=== PATIENT | female | born 1985 | race Caucasian/White ===

== ENCOUNTER 2024-01-25 13:03 | Outpatient (AMB) | payer OTHER, SELFPAY ==
--- NOTE | 2024-01-25 13:20 | MHC.PC.OV ---
Vital Signs 01/25/24 13:22 Height 6 ft Weight 198 lb 4 oz BMI 26.9 BP 120/82 Blood Pressure Location Lt brachial Position Sitting Pulse 93 Pulse Source Pulse Oximeter Pulse Oximetry (%) 98 Oxygen Delivery Method Room Air Intake Visit Reasons: Establish care- needs referral to pain management Intake Note: Patient is a new patient here to establish care for Migraine, Gilbert Disease, ADHD. Transferring care from Dr Garza. Medical records have not been requested and have not received. Assistant Manager Required: No Mobile Home Technician: Not Required per policy Accompanied by: Self / Same As Patient Allergies paroxetine [From Paxil] Allergy (Severe, Verified 01/25/24 13:46) bleeding internally kiwi Allergy (Intermediate, Verified 01/25/24 13:46) burn latex Allergy (Intermediate, Verified 01/25/24 13:46) Burn prochlorperazine [From Compazine] Allergy (Intermediate, Verified 01/25/24 13:46) Muscle Pain strawberry Allergy (Intermediate, Verified 01/25/24 13:46) burn B12 Adverse Reaction (Severe, Uncoded 01/25/24 13:58) jaundice Medication List - Last Reconciled 01/25/24 by Patricia Singer PA-C dextroamphetamine-amphetamine 20 mg (Adderall) 20 mg PO DAILY dextroamphetamine-amphetamine 30 mg ER (Adderall XR) 30 mg PO DAILY diclofenac sodium 50 mg PO TID PRN methocarbamol 500 mg PO TID PRN ondansetron HCl 4 mg PO Q6H oxycodone 10 mg PO Q6H PRN sumatriptan succinate 100 mg PO DAILY PRN tizanidine 8 mg PO BEDTIME PRN Tobacco use date assessed: 01/25/24 Dental Screening Dental Screen Date: 01/25/24 Did you have a dental visit in the last 12 months?: Yes Did you have a dental problem in the last 6 months where you did not have access to dental care?: No Was dental information given to patient?: Patient has dentist HPI Establish care- needs referral to pain management HPI Details 38-year-old female coming to the office for the 1st time. Patient states she is moving back from [place] and has a history of chronic migraines that she was following with pain management. She was seen in the [facility] for prescription for stimulant medication. She describes her migraines as severe and similar to a cluster headache and we will often result in nausea and vomiting. Denies any auras with these migraines. She has been evaluated by Neurology in the past and was told that she does have swelling in her brain primarily over night and they can not identify any underlying causes. She is not up-to-date on routine Pap smears. [facility], [facility] Surgical History (Updated 01/25/24 @ 13:41 by BRO Andrade) History of dental surgery Social History (Updated 01/25/24 @ 13:41 by BRO Andrade) Housing: House Alcohol intake: current Alcohol intake frequency: holidays/special occasions only Patient Tobacco Use Status: Never used Tobacco e-Cigarette/Vaping Use: Former Use Second Hand Smoke Exposure: No service: No Current occupational status: unemployed Cognitive needs: No Hearing needs: No Vision needs: No Questionnaire PHQ-9 Over the last 2 weeks, how often have you been bothered by any of the following problems? 1. Little interest or pleasure in doing things: several days 2. Feeling down, depressed, or hopeless: not at all 3. Trouble falling or staying asleep, or sleeping too much: not at all 4. Feeling tired or having little energy: not at all 5. Poor appetite or overeating: not at all 6. Feeling bad about yourself - or that you are a failure or have let yourself or your family down: not at all 7. Trouble concentrating on things, such as reading the newspaper or watching television: not at all 8. Moving or speaking so slowly that other people could have noticed. Or the opposite - being so fidgety or restless that you have been moving around a lot more than usual: not at all 9. Thoughts that you would be better off or of hurting yourself in some way: not at all Total score: 1 Depression Screening Interpretation: Positive Depression Screening Follow-up: Existing condition Depression Screening Done: Yes Source: Developed by Drs. Frandy Portillo, Rachel Sr, Mike Vu and colleagues, with an educational chris from [employer]. Thrive Questionnaire Date Thrive assessed: 01/25/24 I am a: Patient What is your living situation today?: I have a steady place to live Within the past 12 months, did the food you bought not last and you didn't have the money to get more?: Sometimes True Within the past 12 months, did you worry whether your food would run out before you got money to buy more?: Sometimes True Do you have trouble paying for medicines?: Yes Do you have trouble getting transportation to medical appointments?: No Do you have trouble paying your heating and electricity bill?: I choose not to answer this question Do you have trouble taking care of your child, family member or friend?: I choose not to answer this question Do you have trouble with day-to-day activities such as bathing, preparing meals, shopping, managing finances, etc.?: I choose not to answer this question Are you currently unemployed and looking for a job?: Yes Are you interested in more education?: No Please select the resources that you would like help with: Paying for medicine Currently or been in a relationship where the following occur: I choose not to answer THRIVE Score: 2 AUDIT C Alcohol Use Questionnaire (AUDIT-C) 1. How often do you have a drink containing alcohol?: Monthly or less 2. How many drinks containing alcohol do you have on a typical day when you are drinking?: 1 or 2 3. How often do you have six or more drinks on one occasion?: Never Total Score: 1 ALLISON-7 AMB Questionnaire ALLISON-7 Date ALLISON - 7 assessed: 01/25/24 Feeling nervous, anxious, or on edge: 1 = Several days Not being able to stop or control worryin = Several days Worrying too much about different things: 1 = Several days Trouble relaxin = Several days Being so restless that it is hard to sit still: 1 = Several days Becoming easily annoyed or irritable: 1 = Several days Feeling afraid as if something awful might happen: 1 = Several days Total ALLISON-7 score (0-4 normal; 5-9 mild; 10-14 moderate; 15-21 severe): 7 Source: Developed by Drs. Frandy Portillo, Rachel Sr, Mike Vu and colleagues, with an educational chris from [employer] ALLISON-7 Assessment Billing ALLISON-7 Assessment Tool: ALLISON-7 Assessment 87634 Review of Systems Const Denies body aches, Denies fatigue, Denies fever(s), Denies frequent falls, Reports headache(s) and Denies weakness Eyes Reports no additional complaints and Denies change in vision ENT Denies dysphagia, Denies dizziness, Denies facial pain, Reports headache(s), Denies nasal congestion and Denies odynophagia Card Denies chest pain, Denies syncope, Denies irregular heart rhythm, Denies leg edema, Denies lightheadedness and Denies dyspnea Resp Denies cough and Denies dyspnea GI Denies abdominal pain, Denies constipation, Denies dysphagia, Denies dyspepsia, Denies diarrhea, Denies nausea, Denies odynophagia and Denies vomiting Denies urinary frequency, Denies dysuria, Denies urinary hesitancy and Denies urinary urgency Musc Denies back pain and Denies myalgias Skin/Breast Reports system reviewed and no additional complaints, except as documented Neuro Denies dizziness, Denies syncope, Denies frequent falls, Reports headache(s) and Denies weakness Psych Reports no additional complaints Endo Denies fatigue Physical exam (Primary Care) Vital Signs: Last Vital Signs Pulse 93 01/25/24 13:22 BP 120/82 01/25/24 13:22 Pulse Ox 98 01/25/24 13:22 Oxygen Delivery Method Room Air 01/25/24 13:22 BMI result Body Mass Index 26.9 Tobacco/Smoking Status: Tobacco use Status Tobacco use date assessed 01/25/24 01/25/24 13:27 Patient Tobacco Use Status Never used Tobacco 01/25/24 13:41 e-Cigarette/Vaping Use Former Use 01/25/24 13:43 PHQ-9: PHQ-9 Score PHQ-9: Total score 1 01/25/24 13:28 Depression Screening Interpretation: Positive Depression Screening Follow-up: Existing condition Thrive Assessment: Date of Thrive Assessment Date Thrive assessed 01/25/24 01/25/24 13:27 Currently or been in a relationship where the following occur: I choose not to answer Const General: cooperative, healthy appearing, comfortable and no acute distress Orientation/consciousness: patient oriented x3 HENMT Head: Yes normocephalic Ears: hearing grossly normal bilaterally General nose exam: Normal external nose present Eyes General: appearance normal, both eyes and all related structures Conjunctivae: conjunctivae normal Neck Neck: Yes full ROM and Yes no lymphadenopathy Resp Effort & Inspection: normal respiratory effort Auscultation: clear to auscultation bilaterally, no crackles, no rales, no rhonchi and no wheezes Cardio Rate: regular rate Rhythm: regular rhythm Skin General skin exam: no rashes or lesions noted Neuro General: patient oriented x3 Gait exam (Neuro): Normal gait present Extrem General: Yes normal to inspection, Yes full ROM and No edema Psych Affect: normal affect Attitude: cooperative Insight: Good insight present (Psych) Judgement: Good judgement present (Psych) Coding Level of Care Code New Pt Level 4 (19670) Diagnoses Gilbert syndrome E80.4 ADHD F90.9 Migraine G43.909 Depression F32.A Cervical cancer screening Z12.4 Additional Codes ALLISON-7 Assessment Billing - ALLISON-7 Assessment Tool: ALLISON-7 Assessment 35743 ([id number]) Assessment & Plan Assessment & Plan (1) Gilbert syndrome: Code(s): E80.4 - Gilbert syndrome Category: Medical Plan: Patient states due to this condition she has issues with medication metabolism and is aware of medications to avoid. Avoid medications that are process slowly through the liver. (2) ADHD: Code(s): F90.9 - Attention-deficit hyperactivity disorder, unspecified type Category: Medical Plan: Patient previously on stimulant medication referral placed to outpatient psych clinic. We will request the results and records from her ADHD Clinic to continue this therapy. (3) Migraine: Code(s): G43.909 - Migraine, unspecified, not intractable, without status migrainosus Category: Medical Plan: Referral placed to pain management continue on current medication regimen. Has been seen by neurologist in the past and is declining referral at this time. (4) Depression: Code(s): F32.A - Depression, unspecified Category: Medical Plan: Patient requesting referral to counseling and we will find a counselor near her home in [place] and provided with the information so we can make the referral. Referral placed to outpatient psych clinic. (5) Cervical cancer screening: Code(s): Z12.4 - Encounter for screening for malignant neoplasm of cervix Category: Medical Plan: Patient not up-to-date with routine Pap smears we will find gynecology and near her house and provided with the name so we can put in a referral. Plan This note was constructed using voice recognition software. While every effort has been made to ensure accuracy and director property, still areas may have been included sometimes these areas may affect the content or meeting of the given symptoms. Total time spent caring for the patient today was 30 minutes. This includes time spent before the visit reviewing the chart, time spent during the visit, and time spent after the visit and documentation. Orders: Referrals Pain Management Referral G43.909 - Migraine, unspecified, not intractable, without status migrainosus Psychiatry Outpatient Consultation Service F32.A - Depression, unspecified, F90.9 - Attention-deficit hyperactivity disorder, unspecified type
[2024-01-25 13:22] VITALS: BP 120/82; PULSE 93; O2SAT 98; BMI 26.9
== END 2024-01-25 14:14 | disposition home or self-care (01) ==
DX: E80.4 Gilbert syndrome (principal); F90.9 Attention-deficit hyperactivity disorder, unspecified type; G43.909 Migraine, unspecified, not intractable, without status migrainosus; F32.A Depression, unspecified; Z12.4 Encounter for screening for malignant neoplasm of cervix

== ENCOUNTER → 2024-01-25 13:03 | Outpatient (BNVA) | payer MEDICAID, SELFPAY | DX: E80.4 Gilbert syndrome (principal); F90.9 Attention-deficit hyperactivity disorder, unspecified type; G43.909 Migraine, unspecified, not intractable, without status migrainosus; F32.A Depression, unspecified | CPT/HCPCS: 96127; 99202 ==

== ENCOUNTER 2024-02-04 13:41 | Outpatient (AMB) | payer OTHER, SELFPAY ==
--- NOTE | 2024-02-04 13:45 | MHC.OFFVIS ---
Vital Signs 02/04/24 13:47 Height 6 ft Weight 198 lb BMI 26.9 BP 135/98 H Blood Pressure Location Lt brachial Position Sitting Respiration 15 Pulse 111 H Pulse Source Pulse Oximeter Pulse Oximetry (%) 100 Oxygen Delivery Method Room Air Intake Visit Reasons: Chronic migraines Allergies paroxetine [From Paxil] Allergy (Severe, Verified 02/04/24 13:49) bleeding internally kiwi Allergy (Intermediate, Verified 02/04/24 13:49) burn latex Allergy (Intermediate, Verified 02/04/24 13:49) Burn prochlorperazine [From Compazine] Allergy (Intermediate, Verified 02/04/24 13:49) Muscle Pain banana Adverse Reaction (Severe, Verified 02/04/24 13:49) mouth burn B12 Adverse Reaction (Severe, Uncoded 02/04/24 13:49) jaundice Medication List - Last Reconciled 02/04/24 by Nimisha Harris LPN dextroamphetamine-amphetamine 20 mg (Adderall) 20 mg PO DAILY dextroamphetamine-amphetamine 30 mg ER (Adderall XR) 30 mg PO DAILY diclofenac sodium 50 mg PO TID PRN methocarbamol 500 mg PO TID PRN ondansetron HCl 4 mg PO Q6H oxycodone 10 mg PO Q6H PRN sumatriptan succinate 100 mg PO DAILY PRN tizanidine 8 mg PO BEDTIME PRN HPI Comments Details: Brianna is very pleasant 38 years old female who presents in my office with complains on migraines. She recently moved to [place] from [place]. She reported today that her her migraines started when she was about 15 years old. She was under care of multiple neurologists and she had multiple studies of her migraine however unfortunately nothing was diagnose by brain swelling which is typical occurrence with chronic migraine headache. She was under care of pain management doctor back in [place] who prescribed her Imitrex and exuberant doses of the opioid medications such as oxycodone 150 mg a day and on top of that she received OxyContin on numerous occasions. She reports pain in the front of the head pain in the neck pain in the bilateral temporal areas she reports severe pain every day and today she reports pain 5/10. Because of her pain she can not sleep normally can not do activities of daily living she can take care of herself she can not function normally without medication. She is currently unemployed. Weather changes in movements aggravate her pain. Cold application and oral medication make her pain better. The pain is most severe in the morning and becomes less severe at night. In terms of tissue damage he describes her pain as pulsing, throbbing, pounding, jumping, flushing, shooting, stabbing, dull, hurting, heavy, sickening, suffocating, spreading, radiating, piercing, tight, squeezing, tearing. She received some images which are not available for me to diagnose her migraine. She tried chiropractic manipulations and acupuncture which were not helpful for her pain. She tried buttocks injections which were not helpful for her pain. She never tried calcitonin receptor antagonist to treat her pain. She is suffering from chronic pain syndrome. Her past medical history significant for headaches and Gilbert syndrome she never had any surgeries, she denies smoking cigarettes she stopped 6 months ago. She drinks coffee twice a day she denies recreational drugs. [facility] Surgical History (Updated 01/25/24 @ 13:41 by BRO Andrade) History of dental surgery Social History (Updated 01/25/24 @ 13:41 by BRO Andrade) Housing: House Alcohol intake: current Alcohol intake frequency: holidays/special occasions only Patient Tobacco Use Status: Never used Tobacco e-Cigarette/Vaping Use: Former Use Second Hand Smoke Exposure: No service: No Current occupational status: unemployed Cognitive needs: No Hearing needs: No Vision needs: No Review of Systems Const Reports no additional complaints Eyes Reports no additional complaints ENT Reports no additional complaints and Reports Normal hearing present Card Reports no additional complaints Resp Reports no additional complaints 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) Musc Reports no additional complaints Neuro Reports as per HPI, Reports Normal hearing present, Denies Abnormal speech present and Denies Sensory deficit (Neuro) Psych Reports no additional complaints Physical Exam Vital Signs: Last Vital Signs Pulse 111 H 02/04/24 13:47 Resp 15 02/04/24 13:47 BP 135/98 H 02/04/24 13:47 Pulse Ox 100 02/04/24 13:47 Oxygen Delivery Method Room Air 02/04/24 13:47 BMI result Body Mass Index 26.9 Const General: no acute distress Orientation/consciousness: patient oriented x3 Eyes General: appearance normal, both eyes and all related structures Pupils: Equal, round and reactive pupils present EOM: EOMs intact bilaterally Neck Neck: Yes full ROM Chest Chest palpation & inspection: normal inspection of the chest Resp Effort & Inspection: normal respiratory effort, able to speak in complete sentences, normal respiratory pattern, no audible wheezes and no cough Cardio Jugular venous distension: no JVD GI Inspection: Yes normal to inspection Neuro General: patient oriented x3 and gait normal Cranial nerves: Yes CN's II-XII intact bilaterally, Yes Equal, round and reactive pupils present, Yes Normal hearing present and Yes Ability to bilaterally elevate shoulders present Speech: No Abnormal speech present Gait exam (Neuro): Normal gait present Motor exam (neuro): 5/5 motor strength present throughout Sensory Exam: No Sensory deficit (Neuro) Extrem General: No pedal edema Psych Speech and movement: Normal speech and movement present Affect: normal affect Attitude: cooperative Thought process: Normal thought process present Thought content: Normal thought content present Insight: Good insight present (Psych) Judgement: Good judgement present (Psych) Assessment & Plan Assessment & Plan (1) Chronic migraine w/o aura w/o status migrainosus, not intractable: Code(s): G43.709 - Chronic migraine without aura, not intractable, without status migrainosus Category: Medical (2) Chronic pain syndrome: Code(s): G89.4 - Chronic pain syndrome Category: Medical (3) Spondylosis of cervical spine: Code(s): M47.812 - Spondylosis without myelopathy or radiculopathy, cervical region Category: Medical Plan After examining this patient records from [place] I was not able to make a conclusion whether the condition of this patient is coming from spondylosis of the cervical spine or it is typical true migraine headache. The spondylosis of cervical spine could mimic migraine headache. Migraine is usually unilateral pain and it does not change the location. Her pain is bilateral and she reports neck pain. I offered the patient multiple procedures help her pain. She was offered sphenopalatine nerve block, bilateral occipital nerve block, medial branch block C2, C3, C4 bilateral to diagnose and helps her pain. Spinal cord stimulator of the cervical spine in very high positioned could be so employed to treat this patient's pain. She decided to try sphenopalatine nerve block. We will send the request for sphenopalatine nerve block to the insurance company, once it is approved we will invite her for the procedure here. She came to this office with desire to be on chronic opioid therapy. I explained to her that under no circumstances I will prescribe her 150 mg of oxycodone. The only thing I can offer to her is moderate doses of the opioids such as oxycodone 5 mg 3 to 4 times a day. She is also interested in Imitrex prescription I think primary care physician can take over this prescription. I explained to the patient that receiving opioid in this office is very complex process and it is not happening in 1 day. Patient Instructions: I here by testify that I spent 45 minutes in conversation with this patient as well as studying prior records from [place], planning her care and organizing this note. Coding Level of Care Code New Pt Level 4 (52555) Diagnoses Chronic migraine w/o aura w/o status migrainosus, not intractable G43.709 Chronic pain syndrome G89.4 Spondylosis of cervical spine M47.812
[2024-02-04 13:47] VITALS: BP 135/98; PULSE 111; RESP 15; O2SAT 100; BMI 26.9
== END 2024-02-04 14:33 | disposition home or self-care (01) ==
PROVIDERS: Visit Provider Anesthesiology
DX: G43.709 Chronic migraine without aura, not intractable, without status migrainosus (principal); G89.4 Chronic pain syndrome; M47.812 Spondylosis without myelopathy or radiculopathy, cervical region
CPT/HCPCS: 99204

== ENCOUNTER → 2024-02-04 13:41 | Outpatient (BNVA) | payer MEDICAID, SELFPAY | PROVIDERS: Visit Provider Anesthesiology | DX: G43.709 Chronic migraine without aura, not intractable, without status migrainosus (principal); G89.4 Chronic pain syndrome; M47.812 Spondylosis without myelopathy or radiculopathy, cervical region; E80.4 Gilbert syndrome | CPT/HCPCS: 99202 ==

== ENCOUNTER 2024-02-11 13:10 | Outpatient (AMB) | payer OTHER, SELFPAY ==
--- NOTE | 2024-02-11 13:15 | MHC.OFFVIS ---
Vital Signs 02/11/24 13:21 Height 6 ft Weight 198 lb BMI 26.9 BP 188/78 H Blood Pressure Location Lt brachial Position Sitting Respiration 16 Pulse 131 H Pulse Source Pulse Oximeter Pulse Oximetry (%) 100 Oxygen Delivery Method Room Air Intake Visit Reasons: BILATERAL SPHENOPALATINE NB Allergies paroxetine [From Paxil] Allergy (Severe, Verified 02/11/24 13:26) bleeding internally kiwi Allergy (Intermediate, Verified 02/11/24 13:26) burn latex Allergy (Intermediate, Verified 02/11/24 13:26) Burn prochlorperazine [From Compazine] Allergy (Intermediate, Verified 02/11/24 13:26) Muscle Pain banana Adverse Reaction (Severe, Verified 02/11/24 13:26) mouth burn B12 Adverse Reaction (Severe, Uncoded 02/11/24 13:26) jaundice Medication List - Last Reconciled 02/11/24 by Nimisha Harris LPN dextroamphetamine-amphetamine 20 mg (Adderall) 20 mg PO DAILY dextroamphetamine-amphetamine 30 mg ER (Adderall XR) 30 mg PO DAILY diclofenac sodium 50 mg PO TID PRN methocarbamol 500 mg PO TID PRN ondansetron HCl 4 mg PO Q6H oxycodone 10 mg PO Q6H PRN sumatriptan succinate 100 mg PO DAILY PRN tizanidine 8 mg PO BEDTIME PRN PFSH Surgical History (Updated 01/25/24 @ 13:41 by BRO Andrade) History of dental surgery Social History (Updated 01/25/24 @ 13:41 by BRO Andrade) Housing: House Alcohol intake: current Alcohol intake frequency: holidays/special occasions only Patient Tobacco Use Status: Never used Tobacco e-Cigarette/Vaping Use: Former Use Second Hand Smoke Exposure: No service: No Current occupational status: unemployed Cognitive needs: No Hearing needs: No Vision needs: No Physical Exam Vital Signs: Last Vital Signs Pulse 131 H 02/11/24 13:21 Resp 16 02/11/24 13:21 BP 188/78 H 02/11/24 13:21 Pulse Ox 100 02/11/24 13:21 Oxygen Delivery Method Room Air 02/11/24 13:21 BMI result Body Mass Index 26.9 Assessment & Plan Assessment & Plan (1) Chronic migraine w/o aura w/o status migrainosus, not intractable: Code(s): G43.709 - Chronic migraine without aura, not intractable, without status migrainosus Category: Medical (2) Chronic pain syndrome: Code(s): G89.4 - Chronic pain syndrome Category: Medical Plan Bilateral Sphenopalatine nerve block. The patient was explained informed consent, risks and benefits were explained. Risk of this procedure are very minimal. She was positioned flat on the examination bed. Long Q-tips on the hollow plastic tube were filled with mixture of lidocaine 2% and ropivacaine 0.5% and they were slowly inserted into the nostrils of the patient into the middle turbinate bilaterally until resistance was felt. Additional doses of the local anesthetic as above was added inside the plastic tubes. Patient remained positioned shahab in bed with tubes positioned next to her posterior verdin of the turbinates for 15 minutes. Upon completion of the injection the Q-tips were removed patient tolerated the procedure well. Coding Level of Care Code Procedure Only Diagnoses Chronic migraine w/o aura w/o status migrainosus, not intractable G43.709 Chronic pain syndrome G89.4
[2024-02-11 13:21] VITALS: BP 188/78; PULSE 131; RESP 16; O2SAT 100; BMI 26.9
--- OUTSIDE RECORDS SUMMARY | 2024-02-13 15:36 | XMS_ITS | Continuity of Care Document ---
Author Organization [facility] Address [address], [place] [address] Phone Care Team Providers Care News Clipping Cutter Name Role Phone Cl Robbins OD Unavailable Unavailable Advance Directives Directive Yes / No Effective Date File Name No Information Encounters Encounter Description Practice Location Reason(s) For Visit Diagnoses Date Provider Providers Copied on Encounter [facility], [address] [place] [address], [id number], [place] tel:[phone] [facility] [place] [address]250 No Information Rosendo Smallwood. [address] [place] [address], [id number], [place]. tel:[phone] Family History Family Member Type Diagnosis Age At Onset No Information Payers Payer name Insurance type Covered libertarian ID Authoriza tion(s) No Information Social History Type Description Quantity Date Captured Comments Sex Female Smoking Status No Information Chief Complaint And Reason For Visit No Information Reason For Referral Reason For Referral No Information History Of Present Illness Encounter Date Complaint History Of Prese nt Illness No Information Functional Status Date Functional Assessmen t No Information Instructions Date Instruction Additional Infor mation No Information Assessments Type Assessment Date No Information Patient Care Teams Name Effective Dates (start - stop) Status Members No Information
== END 2024-02-11 14:32 | disposition home or self-care (01) ==
PROVIDERS: Visit Provider Anesthesiology
DX: G43.709 Chronic migraine without aura, not intractable, without status migrainosus (principal); G89.4 Chronic pain syndrome
CPT/HCPCS: 99214

== ENCOUNTER → 2024-02-11 13:10 | Outpatient (BNVA) | payer OTHER, SELFPAY | PROVIDERS: Visit Provider Anesthesiology | DX: G43.709 Chronic migraine without aura, not intractable, without status migrainosus (principal); G89.4 Chronic pain syndrome | CPT/HCPCS: 99212 ==

== ENCOUNTER → 2024-03-07 08:14 | Outpatient (REF) | payer OTHER, SELFPAY ==
--- OUTSIDE RECORDS SUMMARY | 2024-03-07 08:21 | XMS_ITS | Continuity of Care Document ---
Author Organization [facility] Address [address], [place] [address] Phone Care Team Providers Care Pharmacy Data Analyst Name Role Phone Cl Robbins OD Unavailable Unavailable Advance Directives Directive Yes / No Effective Date File Name No Information Encounters Encounter Description Practice Location Reason(s) For Visit Diagnoses Date Provider Providers Copied on Encounter [facility], [address] [place] [address], [id number], [place] tel:[phone] [facility] [place] 5250 No Information Rosendo Smallwood. [address] [place] [address], [id number], [place]. tel:[phone] Family History Family Member Type Diagnosis Age At Onset No Information Payers Payer name Insurance type Covered green party ID Authoriza tion(s) No Information Social History [...]
--- NOTE | 2024-03-07 08:28 | CA_ITS ---
Acquisition Time: 2024-03-07 08:47:51 Total Exercise Time: 00:05:20 Test Indications: chest pain Medications: Protocol: FRANCHESCA Max HR: 164 BPM 90% of Pred: 182 BPM Max BP: 148/082 mmHG Max Work Load: 7.0 METS Exercise Stress Test with exercise 5 mins 20 secs of Franchesca Protocol, achieving 86% MPHR, with baseline 2/10 left sided chest tightness went upto 5/10 with exercise, reports moderate SOB, left arm numbness and feeling very fatigued, without any arrythmias, with normotensive response to exercise. Without EKG changes meeting criteria for ischemia. In recovery, chest tightness and breathing returned to baseline. Recommend Echo and Pharmacologic Nuclear Stress Test with Lexiscan. Test reviewed with Dr. Ellis. Referred By: Patricia Singer Overread By: Jameson Harmon
== END ==
LOC: HO.CARD 08:14
DX: R07.9 Chest pain, unspecified (principal); F32.A Depression, unspecified; F90.9 Attention-deficit hyperactivity disorder, unspecified type; N63.0 Unspecified lump in unspecified breast; K08.89 Other specified disorders of teeth and supporting structures; G43.709 Chronic migraine without aura, not intractable, without status migrainosus; M47.812 Spondylosis without myelopathy or radiculopathy, cervical region
CPT/HCPCS: 93017; 96127; 99202; 99212

== ENCOUNTER → 2024-03-07 08:28 | Outpatient (BNV) | payer OTHER, SELFPAY | DX: R07.2 Precordial pain (principal); R06.02 Shortness of breath | CPT/HCPCS: 93016; 93018 ==

== ENCOUNTER 2024-03-07 10:53 | Outpatient (AMB) | payer OTHER, SELFPAY ==
--- NOTE | 2024-03-07 11:12 | A.OFFVIS_ITS ---
Vital Signs 03/07/24 11:13 Height 6 ft Weight 198 lb BMI 26.9 BP 125/89 Blood Pressure Location Lt brachial Position Sitting Respiration 16 Pulse 100 Pulse Source Pulse Oximeter Pulse Oximetry (%) 100 Oxygen Delivery Method Room Air Intake Visit Reasons: Migraines /Okay per Ina Allergies paroxetine [From Paxil] Allergy (Severe, Verified 03/07/24 14:11) bleeding internally kiwi Allergy (Intermediate, Verified 03/07/24 14:11) burn latex Allergy (Intermediate, Verified 03/07/24 14:11) Burn Penicillins Allergy (Intermediate, Verified 03/07/24 14:11) Rash prochlorperazine [From Compazine] Allergy (Intermediate, Verified 03/07/24 14:11) Muscle Pain banana Adverse Reaction (Severe, Verified 03/07/24 14:11) mouth burn B12 Adverse Reaction (Severe, Uncoded 03/07/24 14:11) jaundice Medication List - Last Reconciled 03/07/24 by Nimisha Harris LPN dextroamphetamine-amphetamine 20 mg (Adderall) 20 mg PO DAILY dextroamphetamine-amphetamine 30 mg ER (Adderall XR) 30 mg PO DAILY diclofenac sodium 50 mg PO TID PRN methocarbamol 500 mg PO TID PRN ondansetron HCl 4 mg PO Q6H oxycodone 10 mg PO Q6H PRN sumatriptan succinate 100 mg PO DAILY PRN tizanidine 8 mg PO BEDTIME PRN HPI HPI Migraines /Okay per Ina: Details: 38-year-old female with a longstanding history of a chronic headache disorder that appears to have been diagnosed at various different points in time as intractable migraines, cluster headache, occipital neuralgia. She has undergone various treatments none of which have been very helpful. She has not tried neuromodulation or occipital nerve stimulation in the past. [facility] Surgical History History of dental surgery Social History Housing: House Alcohol intake: current Alcohol intake frequency: holidays/special occasions only Patient Tobacco Use Status: Never used Tobacco e-Cigarette/Vaping Use: Former Use Second Hand Smoke Exposure: No service: No Current occupational status: unemployed Cognitive needs: No Hearing needs: No Vision needs: No Physical Exam Vital Signs: Last Vital Signs Pulse 100 03/07/24 11:13 Resp 16 03/07/24 11:13 BP 125/89 03/07/24 11:13 Pulse Ox 100 03/07/24 11:13 Oxygen Delivery Method Room Air 03/07/24 11:13 BMI result Body Mass Index 26.9 On exam today: Appears afebrile. Alert and oriented. Mood and affect appropriate. Follows and participates in conversation appropriately. Respiratory effort is unlabored. Able to transition from sit to stand unassisted. Ambulates with bilaterally normal heel strike and toe off. Able to stand and walk on toes and heels. Assessment & Plan Assessment & Plan (1) Chronic migraine w/o aura w/o status migrainosus, not intractable: Code(s): G43.709 - Chronic migraine without aura, not intractable, without status migrainosus Category: Medical (2) Spondylosis of cervical spine: Code(s): M47.812 - Spondylosis without myelopathy or radiculopathy, cervical region Category: Medical Plan I provided her a referral for chiropractor care as well as neurologic evaluation treatment for her headache symptoms. We went over peripheral nerve stimulation of the occipital nerve as 1 potential therapeutic modality that she has not previously used. I went over the risks and benefits of the procedure. I provided her with a brochure for the procedure and went over the details of how it would be placed and how it would be operated. Patient expressed understanding. She will think about it and let us know if she would like to proceed. Orders: Referrals Chiropractic Referral G43.709 - Chronic migraine without aura, not intractable, without status migrainosus, M47.812 - Spondylosis without m yelopathy or radiculopathy, cervical region Neurology Referral G43.709 - Chronic migraine without aura, not intractable, without status migrainosus Coding Level of Care Code New Pt Level 3 (43196) Diagnoses Chronic migraine w/o aura w/o status migrainosus, not intractable G43.709 Spondylosis of cervical spine M47.812
[2024-03-07 11:13] VITALS: BP 125/89; PULSE 100; RESP 16; O2SAT 100; BMI 26.9
--- OUTSIDE RECORDS SUMMARY | 2024-03-07 12:39 | XMS_ITS | Continuity of Care Document ---
Author Organization [facility] Address [address], [place] [address] Phone Care Team Providers Care Automobile Lights Assembler Name Role Phone Cl Robbins OD Unavailable Unavailable Advance Directives Directive Yes / No Effective Date File Name No Information Encounters Encounter Description Practice Location Reason(s) For Visit Diagnoses Date Provider Providers Copied on Encounter [facility], [address] [place] [address], [id number], [place] tel:[phone] [facility] [place] [address]250 No Information Rosendo Smallwood. [address] [place] [address], [id number], [place]. tel:[phone] Family History Family Member Type Diagnosis Age At Onset No Information Payers Payer name Insurance type Covered alliance party ID Authoriza tion(s) No Information Social [...]
== END 2024-03-07 11:47 | disposition home or self-care (01) ==
PROVIDERS: Visit Provider Internal Medicine
DX: G43.709 Chronic migraine without aura, not intractable, without status migrainosus (principal); M47.812 Spondylosis without myelopathy or radiculopathy, cervical region
CPT/HCPCS: 99203

== ENCOUNTER 2024-03-07 13:54 | Outpatient (AMB) | payer OTHER, SELFPAY ==
--- NOTE | 2024-03-07 13:59 | MHC.PC.OV ---
Vital Signs 03/07/24 14:01 Height 6 ft Weight 195 lb BMI 26.4 BP 140/86 H Blood Pressure Location Lt brachial Position Sitting Pulse 98 Pulse Source Pulse Oximeter Pulse Oximetry (%) 97 Oxygen Delivery Method Room Air Intake Visit Reasons: follow up pain management Intake Note: Patient is here to follow up on pain management. Stress test results. Motorman/Woman Required: No Engineering Technologist: Not Required per policy Accompanied by: Self / Same As Patient Allergies paroxetine [From Paxil] Allergy (Severe, Verified 03/07/24 14:11) bleeding internally kiwi Allergy (Intermediate, Verified 03/07/24 14:11) burn latex Allergy (Intermediate, Verified 03/07/24 14:11) Burn Penicillins Allergy (Intermediate, Verified 03/07/24 14:11) Rash prochlorperazine [From Compazine] Allergy (Intermediate, Verified 03/07/24 14:11) Muscle Pain banana Adverse Reaction (Severe, Verified 03/07/24 14:11) mouth burn B12 Adverse Reaction (Severe, Uncoded 03/07/24 14:11) jaundice Medication List - Last Reconciled 03/07/24 by Patricia Singer PA-C dextroamphetamine-amphetamine 20 mg (Adderall) 20 mg PO DAILY dextroamphetamine-amphetamine 30 mg ER (Adderall XR) 30 mg PO DAILY diclofenac sodium 50 mg PO TID PRN methocarbamol 500 mg PO TID PRN ondansetron HCl 4 mg PO Q6H oxycodone 10 mg PO Q6H PRN sumatriptan succinate 100 mg PO DAILY PRN tizanidine 8 mg PO BEDTIME PRN Tobacco use date assessed: 03/07/24 Dental Screening Dental Screen Date: 03/07/24 HPI follow up pain management HPI Details 38-year-old female with past medical history of ADHD, migraine, Gilbert's syndrome, depression last seen January 2024 coming in for follow up.? In review of the notes, patient was seen by pain management 03/07/2023 referral placed to Neurology and chiropractor.? Patient also had stress test completed with recommendation for echocardiogram and nuclear stress test. Patient is on pain management today and states it did not go well was not offered any treatment and was advised to follow up with Neurology and chiropractor. She was seen by a dentist and advised that she has a jaw infection and is going in for re-evaluation on Sunday but requires an antibiotic. She has not been able to get her 30 mg extended-release Adderall through her pharmacy. Lastly she mentioned she has a family history of breast cancer and has been having left breast pain that radiates into the axilla for several months and occasionally will feel a mass. Denies any nipple drainage or skin changes. [facility] Surgical History History of dental surgery Social History Housing: House Alcohol intake: current Alcohol intake frequency: holidays/special occasions only Patient Tobacco Use Status: Never used Tobacco e-Cigarette/Vaping Use: Former Use Second Hand Smoke Exposure: No service: No Current occupational status: unemployed Cognitive needs: No Hearing needs: No Vision needs: No Questionnaire PHQ-9 Over the last 2 weeks, how often have you been bothered by any of the following problems? 1. Little interest or pleasure in doing things: several days 2. Feeling down, depressed, or hopeless: not at all 3. Trouble falling or staying asleep, or sleeping too much: not at all 4. Feeling tired or having little energy: not at all 5. Poor appetite or overeating: not at all 6. Feeling bad about yourself - or that you are a failure or have let yourself or your family down: not at all 7. Trouble concentrating on things, such as reading the newspaper or watching television: not at all 8. Moving or speaking so slowly that other people could have noticed. Or the opposite - being so fidgety or restless that you have been moving around a lot more than usual: not at all 9. Thoughts that you would be better off or of hurting yourself in some way: not at all Total score: 1 Depression Screening Interpretation: Positive Depression Screening Follow-up: Existing condition Depression Screening Done: Yes Source: Developed by Drs. Frandy Portillo, Rachel Sr, Mike Vu and colleagues, with an educational chris from [employer]. Thrive Questionnaire Date Thrive assessed: 03/07/24 AUDIT C Alcohol Use Questionnaire (AUDIT-C) 1. How often do you have a drink containing alcohol?: Monthly or less 2. How many drinks containing alcohol do you have on a typical day when you are drinking?: 1 or 2 Total Score: 1 ALLISON-7 AMB Questionnaire ALLISON-7 Date ALLISON - 7 assessed: 03/07/24 Feeling nervous, anxious, or on edge: 1 = Several days Not being able to stop or control worryin = Several days Worrying too much about different things: 1 = Several days Trouble relaxin = Several days Being so restless that it is hard to sit still: 1 = Several days Becoming easily annoyed or irritable: 1 = Several days Feeling afraid as if something awful might happen: 1 = Several days Total ALLISON-7 score (0-4 normal; 5-9 mild; 10-14 moderate; 15-21 severe): 7 Source: Developed by Drs. Frandy Portillo, Rachel Sr, Mike Vu and colleagues, with an educational chris from [employer]. ALLISON-7 Assessment Billing ALLISON-7 Assessment Tool: ALLISON-7 Assessment 21649 Review of Systems Const Denies body aches, Denies chills, Denies fever(s), Reports headache(s) and Denies poor appetite ENT Reports headache(s) Card Denies chest pain, Denies syncope, Denies edema, Denies irregular heart rhythm, Denies lightheadedness and Denies dyspnea Resp Denies cough and Denies dyspnea GI Denies abdominal pain, Denies constipation, Denies diarrhea, Denies nausea and Denies vomiting Reports no additional complaints Musc Reports no additional complaints and Denies abnormal gait Skin/Breast Details: Left breast pain with occasional palpable lump Reports system reviewed and no additional complaints, except as documented Neuro Denies abnormal gait, Denies syncope and Reports headache(s) Psych Reports no additional complaints Physical exam (Primary Care) Tobacco/Smoking Status: Tobacco use Status Tobacco use date assessed 01/25/24 01/25/24 14:29 Patient Tobacco Use Status Never used Tobacco 01/25/24 14:29 e-Cigarette/Vaping Use Former Use 01/25/24 14:29 Depression Screening Interpretation: Positive Depression Screening Follow-up: Existing condition Thrive Assessment: Date of Thrive Assessment Date Thrive assessed 03/07/24 03/07/24 13:55 Const General: cooperative, healthy appearing, comfortable and no acute distress Orientation/consciousness: patient oriented x3 HENMT Head: Yes normocephalic Ears: hearing grossly normal bilaterally General nose exam: Normal external nose present Eyes General: appearance normal, both eyes and all related structures Conjunctivae: conjunctivae normal Neck Neck: Yes full ROM and Yes no lymphadenopathy Chest Other: Tenderness to palpation over inferior and lateral aspect of left breast no masses palpated. No tenderness to palpation over right breast. Resp Effort & Inspection: normal respiratory effort Auscultation: clear to auscultation bilaterally, no crackles, no rales, no rhonchi and no wheezes Cardio Rate: regular rate Rhythm: regular rhythm Skin General skin exam: no rashes or lesions noted Neuro General: patient oriented x3 Gait exam (Neuro): Normal gait present Extrem General: Yes normal to inspection, Yes full ROM and No edema Psych Affect: normal affect Attitude: cooperative Insight: Good insight present (Psych) Judgement: Good judgement present (Psych) Coding Level of Care Code Est Pt Level 4 (61279) Diagnoses Chest pain R07.9 Depression F32.A ADHD F90.9 Migraine G43.909 Breast lump N63.0 Toothache K08.89 Additional Codes ALLISON-7 Assessment Billing - ALLISON-7 Assessment Tool: ALLISON-7 Assessment 95679 ([id number]) Assessment & Plan Assessment & Plan (1) Chest pain: Code(s): R07.9 - Chest pain, unspecified Category: Medical Plan: Patient completed stress test and at recommendation of Cardiology placed order for nuclear stress test as well as echocardiogram. (2) Depression: Code(s): F32.A - Depression, unspecified Category: Medical Plan: Not currently on medical management at this time declining counseling or medication at this time. (3) ADHD: Code(s): F90.9 - Attention-deficit hyperactivity disorder, unspecified type Category: Medical Plan: Continue on Adderall extended release and short-acting patient will need to follow up every 3 months for refill. (4) Migraine: Code(s): G43.909 - Migraine, unspecified, not intractable, without status migrainosus Category: Medical Plan: Currently following with pain management and on a multitude of medications. Patient was also referred to Neurology and chiropractor by pain management. Referral placed to [facility] pain management and continue on current medication regimen. (5) Breast lump: Code(s): N63.0 - Unspecified lump in unspecified breast Category: Medical Plan: Patient complaining of breast lump which was not palpable on today's exam but does have tenderness to palpation over inferior and lateral aspect of left breast. Denying any nipple drainage no skin changes. Ordered for left mammogram and ultrasound for further evaluation. (6) Toothache: Code(s): K08.89 - Other specified disorders of teeth and supporting structures Category: Medical Plan: Patient will have evaluation by dentist on Sunday but requiring a antibiotic for jaw pain. We will send clindamycin q.i.d. until evaluation by dentist can be completed. Plan This note was constructed using voice recognition software. While every effort has been made to ensure accuracy and newspaper manager, still areas may have been included sometimes these areas may affect the content or meeting of the given symptoms. Total time spent caring for the patient today was 20 minutes. This includes time spent before the visit reviewing the chart, time spent during the visit, and time spent after the visit and documentation. Orders: Orders US breast LT complete Today N63.0 - Unspecified lump in unspecified breast MM tomosynthesis diagnostic LT Today N63.0 - Unspecified lump in unspecified breast Referrals Pain Management Referral G43.709 - Chronic migraine without aura, not intractable, without status migrainosus, G89.4 - Chronic pain syndrome Medications: New clindamycin HCl 300 mg PO QID 7 days 28 caps 0RF Refilled sumatriptan succinate 100 mg PO DAILY PRN 30 tabs 0RF migraine
[2024-03-07 14:01] VITALS: BP 140/86; PULSE 98; O2SAT 97; BMI 26.4
--- OUTSIDE RECORDS SUMMARY | 2024-03-07 15:23 | XMS_ITS | Continuity of Care Document ---
Author Organization [facility] Address [address], [place] [address] Phone Care Team Providers Care Onsite Case Manager Name Role Phone Cl Robbins OD Unavailable Unavailable Advance Directives Directive Yes / No Effective Date File Name No Information Encounters Encounter Description Practice Location Reason(s) For Visit Diagnoses Date Provider Providers Copied on Encounter [facility], [address] [place] [address], [id number], [place] tel:[phone] [facility] [place] 5250 No Information Rosendo Smallwood. [address] [place] [address], [id number], [place]. tel:[phone] Family History Family Member Type Diagnosis Age [...]
== END 2024-03-07 14:30 | disposition home or self-care (01) ==
DX: R07.9 Chest pain, unspecified (principal); F32.A Depression, unspecified; F90.9 Attention-deficit hyperactivity disorder, unspecified type; G43.909 Migraine, unspecified, not intractable, without status migrainosus; N63.0 Unspecified lump in unspecified breast; K08.89 Other specified disorders of teeth and supporting structures

== ENCOUNTER → 2024-03-17 14:53 | Outpatient (REF) | payer OTHER, SELFPAY ==
--- NOTE | 2024-03-17 14:55 | CA_ITS ---
Transthoracic Echocardiogram Patient (Last, First, Middle): Brianna Ribera, Gender: Female Date of : 1985 Age: 39 Procedure Date: 03/17/2024 Procedure Type: Transthoracic Echocardiogram Location: OP Height: 182.88 cm Weight: 87.09 kg BSA: 2.09 m2 Heart Rate: 66 bpm BP: 130 / 85 mmHg Toll Bridge Operator: NIKITA Referring MD: Patricia Singer PA-C Symptoms: R07.9 - Chest pain, unspecified Study Quality: Fair ECG Rhythm: Sinus Conclusions: - The left ventricular systolic function is normal. The calculated ejection fraction is 60% by biplane method. - No obvious valvular pathology seen on this study. Findings Left Ventricle Normal left ventricular cavity size. There is normal left ventricular wall thickness. The left ventricular systolic function is normal. The calculated ejection fraction is 60% by biplane method. There is no evidence of regional wall motion abnormalities. Diastolic function is normal for age. Right Ventricle Normal right ventricular cavity size and systolic function. Atria Both atria are normal in size. Aortic Valve There is a normal trileaflet aortic valve. There is no aortic valve stenosis. There is no aortic valve regurgitation. Mitral Valve The mitral valve appears normal. There is no mitral valve regurgitation. There is no mitral valve stenosis. Pulmonic Valve The pulmonic valve is likely normal. Tricuspid Valve Normal tricuspid valve structure. There is no tricuspid valve regurgitation. Tricuspid regurgitation envelope is inadequate for calculation of right ventricular systolic pressure. Great Vessels The asc aorta is normal in size. Venous The inferior vena cava is normal in size and collapses greater than 50% with inspiration. Pericardium/Pleural There is no evidence of pericardial effusion. Prior Study Comparison No prior study available for comparison. Recommendations, Care & Conclusions No obvious valvular pathology seen on this study. Measurements 2D Linear Measurements IVSd: 0.97 0.6-0.9/0.6-1.0 cm LVIDd: 4.36 3.9-5.3/4.2-5.9 cm LVIDd Index: 2.09 2.4-3.2/2.2-3.1 cm/m2 LVIDs: 3.15 2.0-3.6 cm LVPWd: 1.00 0.7-1.1 cm LA Diam: 3.10 2.7-3.8/3.0-4.0 cm LAIDs Index: 1.48 1.5-2.3 cm/m2 LV Mass: 176.84 67-162/88-224 g LV Mass Index: 84.61 43-95/49-115 g/m2 LVOT Diam: 2.00 3.0+(-)1.3 cm 2D Systolic Function EF 4C: 59.20 >55% EF 2C: 61.10 >55% EF BiP: 60.20 >55% Mitral Valve MV Pk E: 0.67 MV PK A: 0.81 MV Decel Time: 156.00 E/A: 0.80 E'Lateral: 10.20 E'Medial: 6.53 E/E' Med: 10.30 E/E' Lat: 6.60 PHT: 46.00 MVA PHT: 4.78 Decel Wilbarger: 4.32 Aortic Valve AoV Pk Domingo: 1.22 AoV Mn Domingo: 0.89 AoV VTI: 0.29 AoV Pk Grad: 6.00 Aov Mn Grad: 3.00 DAYAMI Cont.VTI: 2.29 LVOT LVOT Pk Domingo: 1.01 LVOT Mn Domingo: 0.72 LVOT VTI: 0.21 LVOT Pk Grad: 4.00 LVOT Mn Grad: 2.00 LVOT Diam: 2.00 LVOT Area: 3.14 Diastolic Function MV Pk E: 0.67 MV Pk A: 0.81 E/A: 0.80 E'Medial: 6.53 E/E' Med: 10.30 E' Laterial: 10.20 E/E' Lat: 6.60 Right Ventricle TAPSE (mm): 23.00 TVS' Domingo: 10.90 Tricuspid Valve RA Press: 3.00 Great Vessels Aorta Sinus of Valsalva: 3.30 2.0-3.5 cm Ao Asc: 3.40 2.1-3.4 cm Pulmonary Valve PV Pk Domingo: 1.02 Peak PV Grad: 4.00 Updated in Other Vendor System with Status of Final Darius Larson MD electronically signed on 03/17/2024 4:29:25 PM with status of Final
--- OUTSIDE RECORDS SUMMARY | 2024-03-17 18:54 | XMS_ITS | Continuity of Care Document ---
Author Organization [facility] Address [address], [place] [address] Phone Care Team Providers Care Waste Salvager Name Role Phone Cl Robbins OD Unavailable Unavailable Advance Directives Directive Yes / No Effective Date File Name No Information Encounters Encounter Description Practice Location Reason(s) For Visit Diagnoses Date Provider Providers Copied on Encounter [facility], [address] [place] [address], [id number], [place] tel:[phone] [facility] [place] 5250 No Information Rosendo Smallwood. [address] [place] [address], [id number], [place]. tel:[phone] Family History Family Member Type Diagnosis Age [...]
== END ==
LOC: HO.CARD 14:53
DX: R07.9 Chest pain, unspecified (principal)
CPT/HCPCS: 93306

== ENCOUNTER → 2024-03-17 14:55 | Outpatient (BNV) | payer OTHER, SELFPAY | PROVIDERS: Visit Provider Internal Medicine | DX: R07.9 Chest pain, unspecified (principal) | CPT/HCPCS: 93306 ==

== ENCOUNTER 2024-04-28 13:16 | Outpatient (AMB) | payer OTHER, SELFPAY ==
--- NOTE | 2024-04-28 13:21 | A.OFFPC_ITS ---
Vital Signs 04/28/24 13:22 Height 6 ft Weight 204 lb 2 oz BMI 27.7 BP 110/72 Blood Pressure Location Lt brachial Position Sitting Pulse 100 Pulse Source Pulse Oximeter Temp 96.8 F Temp Source Temporal Artery Scan Pulse Oximetry (%) 99 Oxygen Delivery Method Room Air Intake Visit Reasons: pe Intake Note: Patient is here today for a physical. Communications Senior Associate Required: No Lab Aid: Not Required per policy Accompanied by: Self / Same As Patient Allergies paroxetine [From Paxil] Allergy (Severe, Verified 04/28/24 13:34) bleeding internally kiwi Allergy (Intermediate, Verified 04/28/24 13:34) burn latex Allergy (Intermediate, Verified 04/28/24 13:34) Burn Penicillins Allergy (Intermediate, Verified 04/28/24 13:34) Rash prochlorperazine [From Compazine] Allergy (Intermediate, Verified 04/28/24 13:34) Muscle Pain banana Adverse Reaction (Severe, Verified 04/28/24 13:34) mouth burn B12 Adverse Reaction (Severe, Uncoded 04/28/24 13:34) jaundice Medication List - Last Reconciled 04/28/24 by Patricia Singer PA-C clindamycin HCl 300 mg PO QID 7 days dextroamphetamine-amphetamine 20 mg (Adderall) 20 mg PO DAILY dextroamphetamine-amphetamine 30 mg ER (Adderall XR) 30 mg PO DAILY diclofenac sodium 50 mg PO TID PRN methocarbamol 500 mg PO TID PRN ondansetron HCl 4 mg PO Q6H oxycodone 10 mg PO Q6H PRN sumatriptan succinate 100 mg PO DAILY PRN tizanidine 8 mg PO BEDTIME PRN Tobacco use date assessed: 04/28/24 Dental Screening Dental Screen Date: 03/07/24 HPI pe HPI Details 39-year-old female with past medical his tory of ADHD, migraine, Gilbert's syndrome, depression last seen 03/2024 coming in for annual exam.?In review of the notes, patient had echocardiogram completed 03/17/2024 showing normal ejection fraction 60% without valvular pathology and scheduled to undergo nuclear stress test in June. Patient tells us today she recently returned from vacation. While she was on vacation she knows she was no longer having any chest pains. She also mentioned she has been referred to [place] for dental surgery she has been seen by several specialists out here who recommended a higher level of care she has a large cyst in the lower bone of her jaw requiring extensive surgery. She was referred to [facility] pain management at her last visit who reached out and declined has a patient recommending seeing the neurologist 1st. He also mentions around the holidays she had sudden vision loss of the right eye and was evaluated by [facility] both the group art supervisor and the optic neurologist and has a follow up next month. Pap smears: not UTD - referral placed to SIGNAL APPRENTICE today Vax: due for TDaP but allergies restricting administration PFSH Surgical History History of dental surgery Social History Housing: House Alcohol intake: current Alcohol intake frequency: holidays/special occasions only Patient Tobacco Use Status: Never used Tobacco e-Cigarette/Vaping Use: Former Use Second Hand Smoke Exposure: No service: No Current occupational status: unemployed Cognitive needs: No Hearing needs: No Vision needs: No Questionnaire Thrive Questionnaire Date Thrive assessed: 03/07/24 I am a: Patient What is your living situation today?: I have a steady place to live Within the past 12 months, did the food you bought not last and you didn't have the money to get more?: I choose not to answer this question Within the past 12 months, did you worry whether your food would run out before you got money to buy more?: Never true Do you have trouble paying for medicines?: I choose not to answer this question Do you have trouble getting transportation to medical appointments?: No Do you have trouble paying your heating and electricity bill?: No Do you have trouble taking care of your child, family member or friend?: No Do you have trouble with day-to-day activities such as bathing, preparing meals, shopping, managing finances, etc.?: No Are you currently unemployed and looking for a job?: I choose not to answer this question Are you interested in more education?: I choose not to answer this question Please select the resources that you would like help with: None Currently or been in a relationship where the following occur: No concerns reported THRIVE Score: 0 AUDIT C Alcohol Use Questionnaire (AUDIT-C) 1. How often do you have a drink containing alcohol?: Monthly or less 2. How many drinks containing alcohol do you have on a typical day when you are drinking?: 1 or 2 3. How often do you have six or more drinks on one occasion?: Never Total Score: 1 ALLISON-7 AMB Questionnaire ALLISON-7 Date ALLISON - 7 assessed: 03/07/24 Feeling nervous, anxious, or on edge: 1 = Several days Not being able to stop or control worryin = Several days Worrying too much about different things: 1 = Several days Trouble relaxin = Several days Being so restless that it is hard to sit still: 1 = Several days Becoming easily annoyed or irritable: 1 = Several days Feeling afraid as if something awful might happen: 0 = Not at all Total ALLISON-7 score (0-4 normal; 5-9 mild; 10-14 moderate; 15-21 severe): 6 Source: Developed by Drs. Frandy Portillo, Rachel Sr, Mike Vu and colleagues, with an educational chris from [employer]. Review of Systems Const Denies body aches, Denies fatigue, Denies fever(s), Denies frequent falls, Reports headache(s) and Denies weakness Eyes Reports no additional complaints and Denies change in vision ENT Denies dizziness, Denies facial pain, Reports headache(s) and Denies nasal congestion Card Denies chest pain, Denies syncope, Denies irregular heart rhythm, Denies leg edema, Denies lightheadedness and Denies dyspnea Resp Denies cough and Denies dyspnea GI Denies abdominal pain, Denies constipation, Denies dyspepsia, Denies diarrhea, Denies nausea and Denies vomiting Denies urinary frequency, Denies dysuria, Denies urinary hesitancy and Denies urinary urgency Musc Denies back pain and Denies myalgias Skin/Breast Reports system reviewed and no additional complaints, except as documented Neuro Denies dizziness, Denies syncope, Denies frequent falls, Reports headache(s) and Denies weakness Psych Reports no additional complaints Endo Denies fatigue Physical exam (Primary Care) Vital Signs: Last Vital Signs Temp 96.8 F 04/28/24 13:22 Pulse 100 04/28/24 13:22 BP 110/72 04/28/24 13:22 Pulse Ox 99 04/28/24 13:22 Oxygen Delivery Method Room Air 04/28/24 13:22 BMI result Body Mass Index 27.7 Tobacco/Smoking Status: Tobacco use Status Tobacco use date assessed 04/28/24 04/28/24 13:24 Patient Tobacco Use Status Never used Tobacco 04/28/24 13:24 e-Cigarette/Vaping Use Former Use 04/28/24 13:24 Thrive Assessment: Date of Thrive Assessment Date Thrive assessed 03/07/24 04/28/24 13:24 Currently or been in a relationship where the following occur: No concerns reported Const General: cooperative, healthy appearing, comfortable and no acute distress Orientation/consciousness: patient oriented x3 HENMT Head: Yes normocephalic Ears: hearing grossly normal bilaterally, external ears normal, TM's normal bilaterally and EAC's normal General nose exam: Normal external nose present Face and sinus: Yes normal facial exam and Yes sinuses nontender Mouth: Normal oral and palatal mucosa present and tongue normal Throat: Yes posterior oropharynx normal Eyes General: appearance normal, both eyes and all related structures Conjunctivae: conjunctivae normal Pupils: Equal, round and reactive pupils present EOM: EOMs intact bilaterally and No Nystagmus present Neck Neck: Yes normal visual inspection, Yes full ROM and Yes no lymphadenopathy Chest Chest palpation & inspection: normal inspection of the chest Resp Effort & Inspection: normal respiratory effort Auscultation: clear to auscultation bilaterally, no crackles, no rales, no rho nchi, no wheezes and breath sounds present Cardio Rate: regular rate Rhythm: regular rhythm Peripheral pulses: radial pulses present and dorsalis pedis present GI Inspection: Yes normal to inspection and No Abdominal wall edema Palpation (GI): Soft to palpation, not firm and nontender Auscultation: normal bowel sounds Rectal Exam - Female: deferred General: Yes no CVA tenderness Back/Spine/Pelvis Back: no CVA tenderness Skin General skin exam: no rashes or lesions noted Neuro General: patient oriented x3 Cranial nerves: Yes Equal, round and reactive pupils present, Yes Midline tongue present, Yes Ability to bilaterally elevate shoulders present and No Nystagmus present Gait exam (Neuro): Normal gait present Extrem General: Yes normal to inspection, Yes full ROM, No no pedal edema and No edema Psych Speech and movement: Normal speech and movement present Affect: normal affect Insight: Good insight present (Psych) Judgement: Good judgement present (Psych) Coding Level of Care Code Est Pt Prev Care 18-39y(50970) Diagnoses Breast lump N63.0 Chronic pain syndrome G89.4 Chronic migraine w/o aura w/o status migrainosus, not intractable G43.709 Depression F32.A Gilbert syndrome E80.4 ADHD F90.9 Migraine G43.909 Annual physical exam Z00.00 Jaw cyst M27.40 Vision loss, right eye H54.61 Assessment & Plan Assessment & Plan (1) Breast lump: Code(s): N63.0 - Unspecified lump in unspecified breast Category: Medical Plan: Patient has ultrasound scheduled for the next few weeks. (2) Chronic pain syndrome: Code(s): G89.4 - Chronic pain syndrome Category: Medical Plan: At last visit patient was referred to [facility] pain management who reach out to declined has a patient. Recommend patient following up with neurologist. (3) Chronic migraine w/o aura w/o status migrainosus, not intractable: Code(s): G43.709 - Chronic migraine without aura, not intractable, without status m igrainosus Category: Medical Plan: Patient has a appointment coming up with Neurology continue on sumatriptan and Zofran as needed in the meantime. (4) Depression: Code(s): F32.A - Depression, unspecified Category: Medical Plan: Not currently on medical management at this time declining counseling or medication at this time. Counseling referral discussed with patient today in the community navigator was present for the discussion to help set up services with the patient. (5) Gilbert syndrome: Code(s): E80.4 - Gilbert syndrome Category: Medical Plan: Continue to monitor hepatic function (6) ADHD: Code(s): F90.9 - Attention-deficit hyperactivity disorder, unspecified type Category: Medical Plan: Continue on Adderall extended release and short-acting patient will need to follow up every 3 months for refill. (7) Migraine: Code(s): G43.909 - Migraine, unspecified, not intractable, without status migrainosus Category: Medical Plan: Currently following with pain management and on a multitude of medications. Patient was also referred to Neurology and chiropractor by pain management. Referral placed to [facility] pain management at last visit. (8) Annual physical exam: Code(s): Z00.00 - Encounter for general adult medical examination without abnormal findings Category: Medical Plan: Patient is up-to-date on all recommended routine screenings and vaccinations for her age. Healthy diet and regular exercise is encouraged. Referral placed to gynecology for annual Pap smears. (9) Jaw cyst: Code(s): M27.40 - Unspecified cyst of jaw Category: Medical Plan: Continue to follow with specialists in [place] advised patient to have this specialists send the notes to our office. (10) Vision loss, right eye: Code(s): H54.61 - Unqualified visual loss, right eye, normal vision left eye Category: Medical Plan: Continue to follow with [facility] and plan to receive the notes from the practice after her next visit. Plan This note was constructed using voice recognition software. While every effort has been made to ensure accuracy and registered nurse nursery, still areas may have been included sometimes these areas may affect the content or meeting of the given symptoms. Total time spent caring for the patient today was 30 minutes. This includes time spent before the visit reviewing the chart, time spent during the visit, and time spent after the visit and documentation. Orders: Orders Complete Blood Count Auto Diff Today Z00.00 - Encounter for general adult medi kym examination without abnormal findings Vitamin B12 and Folate Today Z00.00 - Encounter for general adult medical examination without abnormal findings Vitamin D 25-OH Total Today Z00.00 - Encounter for general adult medical examination without abnormal findings Comprehensive Met. Panel Today Z00.00 - Encounter for general adult medical examination without abnormal findings Lipid Panel Today E78.00 - Pure hypercholesterolemia, unspecified TSH reflex Free T4 Today Z00.00 - Encounter for general adult medical examination without abnormal findings Referrals SIGNAL APPRENTICE Referral Z12.4 - Encounter for screening for malignant neoplasm of cervix Medications: New ondansetron HCl 4 mg PO Q6H 30 tabs 0RF Refilled dextroamphetamine-amphetamine 20 mg (Adderall) take 20 mg at 3 pm in the afternoon 20 mg PO DAILY 30 tabs 0RF dextroamphetamine-amphetamine 30 mg ER (Adderall XR) take 30mg ER daily in the morning 30 mg PO DAILY 30 caps 0RF sumatriptan succinate 100 mg PO DAILY PRN 30 tabs 3RF migraine Discontinued clindamycin HCl Discontinued Reason: Patient no longer taking 300 mg PO QID 7 days 28 caps 0RF
[2024-04-28 13:22] VITALS: BP 110/72; PULSE 100; TEMP 36; O2SAT 99; BMI 27.7
--- OUTSIDE RECORDS SUMMARY | 2024-04-28 15:13 | XMS_ITS | Clinical Summary ---
Author Organization [facility] Address [address] [place] [address] Care Team Providers Care Er Physician Name Role Phone Unavailable Primary Care Provider Unavailabl e Medications clindamycin (CLEOCIN) 300 mg capsule Take two STAT followed by one QID until gone 28 capsule 09/06/2021 Active Active Problems No known active problems Social History Tobacco Use Types Packs/Day Years Used Date Smoking Tobacco: Never Assessed Comments Unknown Sex and Gender Information Value Date Recorded Sex Assigned at Not on file Legal Sex Female 11:58 AM PDT Gender Identity Not on file Sexual Orientation Not on file Plan of Treatment Health Maintenance Due Date Last Done Comments Dental Oral Exam 1985 Dental Prophylaxis 1985 Dental X-Ray: Bitewings 1985 Dental X-Ray: Full Mouth 1985 Dental X-Ray: Panoramic 11/01/2024 10/31/2021, 08/24 Meningococcal B Vaccine Aged Out No l onger eligible based on patient's age to complete this topic Procedures Procedure Name Priority Date/Time Associated Diagnosis Comments PANORAMIC RADIOGRAPHIC IMAGE Routine 08/24/2021 9:00 AM MST from Last 3 Months or Most Recently Relevant to Health Maintenance Insurance [employer] HMO
--- OUTSIDE RECORDS SUMMARY | 2024-04-28 15:13 | XMS_ITS | Encounter Summary ---
Author Organization [facility] Address [address] [place] [address] Care Team Providers Care Regional Trainer Name Role Phone Unavailable Primary Care Provider Unavailabl e Prior Encounters Date Type Department Care Team Description 09/06/2021 10:00 AM [facility] Office Visit [place] [facility] [address], [facility] [address] [place] [address] Rachell Quesada DMD 08/24/2021 9:00 AM [facility] Office Visit [place] [facility] [address], [facility] [address] [place] [address] Rachell Quesada, CAMMIE Plan of Treatment Not on file Procedures Procedure Name Priority Date/Time Associated Diagnosis Comments CBCT - PROBLEM FOCUSED Routine 10:00 AM [facility] RE-EVALUATION ? POST-OPERATIVE OFFICE VISIT Routine 09/06/2021 10:00 AM [facility] 25 CERECFIRED CROWN ANT Routine 08/25/19 9:00 AM [facility] 25 CORE BUILDUP, INCLUDING ANY PINS WHEN REQUIRED Routine 08/24/2021 9:00 AM [facility] 25 ENDODONTIC THERAPY, ANTERIOR TOOTH (EXCLUDING FINAL BAPTISM) Routine 08/24/2021 9:00 AM [facility] PANORAMIC RADIOGRAPHIC IMAGE Routine 08/24/2021 9:00 AM [facility] ADDITIONAL X-RAY Routine 08/24/2021 9:00 AM MST BITEWING - SINGLE RADIOGRAPHIC IMAGE Routine 08/24/2021 9:00 AM [facility] SINGLE X-RAY Routine 08/24/2021 9:00 AM [facility] LIMITED ORAL EVALUATION - PROBLEM FOCUSED Routine 08/24/2021 9:00 AM [facility]ST Visit Diagnoses Not on file Insurance [employer] HMO
--- OUTSIDE RECORDS SUMMARY | 2024-04-28 15:13 | XMS_ITS | Continuity of Care Document ---
Author Organization [facility] Address [address], [place] [address] Phone Care Team Providers Care Youth Development Professional Name Role Phone Cl Robbins OD Unavailable Unavailable Advance Directives Directive Yes / No Effective Date File Name No Information Encounters Encounter Description Practice Location Reason(s) For Visit Diagnoses Date Provider Providers Copied on Encounter [facility], [address] [place] [address], [id number], [place] tel:[phone] [facility] No Information [facility]. [address] [place] [address], [id number], [place]. tel:[phone] Family History Family Member Type Diagnosis Age At Onset No Information Payers Payer name Insurance type Covered constitution party ID Authoriza tion(s) No Information Social [...]
== END 2024-04-28 14:38 | disposition home or self-care (01) ==
DX: N63.0 Unspecified lump in unspecified breast (principal); G89.4 Chronic pain syndrome; G43.709 Chronic migraine without aura, not intractable, without status migrainosus; F32.A Depression, unspecified; E80.4 Gilbert syndrome; F90.9 Attention-deficit hyperactivity disorder, unspecified type; G43.909 Migraine, unspecified, not intractable, without status migrainosus; Z00.00 Encounter for general adult medical examination without abnormal findings; M27.40 Unspecified cyst of jaw; H54.61 Unqualified visual loss, right eye, normal vision left eye

== ENCOUNTER → 2024-04-28 13:16 | Outpatient (BNVA) | payer OTHER, SELFPAY | DX: Z00.00 Encounter for general adult medical examination without abnormal findings (principal); N63.0 Unspecified lump in unspecified breast; G89.4 Chronic pain syndrome; G43.709 Chronic migraine without aura, not intractable, without status migrainosus; F32.A Depression, unspecified; E80.4 Gilbert syndrome; F90.9 Attention-deficit hyperactivity disorder, unspecified type; G43.909 Migraine, unspecified, not intractable, without status migrainosus; H54.61 Unqualified visual loss, right eye, normal vision left eye; M27.40 Unspecified cyst of jaw | CPT/HCPCS: 99395 ==

== ENCOUNTER 2024-04-30 12:52 | Outpatient (REF) | payer OTHER, SELFPAY ==
--- NOTE | ~2024-04-30 | MM_ITS ---
EXAMINATION: MM DIAGNOSTIC DIGITAL BREAST TOMOSYNTHESIS, BILATERAL Bilateral Limited ultrasound. CLINICAL INFORMATION: Left lateral pain. COMPARISON: Mammography: Comparison is made with relevant prior exams. TECHNIQUE: Digital breast mammography with tomosynthesis is performed in both the craniocaudal and mediolateral oblique views along with computer-aided detection (CAD). Bilateral Limited ultrasound. FINDINGS: There are scattered areas of fibroglandular density (ACR BI-RADS breast composition Category b). Left: Focal asymmetry upper outer breast middle depth. No suspicious calcifications or other abnormal findings. Targeted color Doppler ultrasound scanning in the area the patient's pain in the lateral left breast and focal asymmetry upper outer quadrant and lower outer quadrant demonstrates normal fibronodular breast tissue. Right: Oval mass upper outer breast middle to posterior depth. Oval mass lower central breast posterior depth. No suspicious calcifications or other abnormal findings. Targeted color Doppler ultrasound scanning in the upper outer quadrant and lower outer quadrant demonstrates a hypoechoic oval circumscribed solid mass at 9:00 7 cm from nipple measuring 8 x 9 x 6 mm with morphology of a probable fibroadenoma which is a correlate for the focal asymmetry in the upper outer breast on mammography. Otherwise there is normal fibronodular breast tissue. Results are provided to the patient at time of visit by the technologist. MM/MM tomosynthesis diagnostic BI IMPRESSION: Left: 1. Focal asymmetry upper outer breast without sonographic correlate. Recommend 6 month follow-up left breast mammography for further evaluation of stability. Probably benign. 2. No mammographic or sonographic abnormality to account for the patient's lateral left breast pain. Recommend clinical evaluation and follow-up. Right: Oval mass in the right breast] O'clock which correlates with the circumscribed oval mass on mammography. Probably benign. Recommend 6 month follow-up ultrasound for further evaluation of stability. 2. Focal asymmetry lower central breast posterior depth on mammography without sonographic correlate. Recommend six-month follow-up mammography for further evaluation of stability. ASSESSMENT: BI-RADS BI-RADS 3 - Probably benign finding(s) - 6 month follow-up suggested RECOMMENDATION: 6 Month F/U This patient's information was entered into a reminder system with a target due date for their next mammogram. Electronically signed by: Mala East DO 04/30/2024 02:28 PM [facility]
--- OUTSIDE RECORDS SUMMARY | 2024-04-30 15:45 | XMS_ITS | Continuity of Care Document ---
Author Organization [facility] Address [address], [place] [address] Phone Care Team Providers Care Paver Name Role Phone Cl Robbins OD Unavailable Unavailable Advance Directives Directive Yes / No Effective Date File Name No Information Encounters Encounter Description Practice Location Reason(s) For Visit Diagnoses Date Provider Providers Copied on Encounter [facility], [address] [place] [address], [id number], [place] tel:[phone] [facility] No Information [facility]. [address] [place] [address], [id number], [place]. tel:[phone] Family History Family Member Type Diagnosis Age [...]
--- OUTSIDE RECORDS SUMMARY | 2024-04-30 15:45 | XMS_ITS | Clinical Summary ---
Author Organization [facility] Address [address] [place] [address] Care Team Providers Care Eyeglass Cutter Name Role Phone Unavailable Primary Care Provider [...]
--- OUTSIDE RECORDS SUMMARY | 2024-04-30 15:45 | XMS_ITS | Encounter Summary ---
Author Organization [facility] Address [address] [place] [address] Care Team Providers Care Tassel Making Machine Operator Name Role Phone Unavailable Primary Care Provider Unavailabl e Prior Encounters Date Type Department Care Team Description 09/06/2021 10:00 AM [facility] Office Visit [place] [facility] [address], [facility] [address] [place] [address] Rachell Quesada DMD 08/24/2021 9:00 AM [facility] Office Visit [place] [facility] [address], [facility] [address] [place] [address] Rachell Quesada, CAMMIE Plan of Treatment Not on file Procedures Procedure Name Priority Date/Time Associated Diagnosis Comments CBCT - PROBLEM FOCUSED Routine 10:00 AM [facility] RE-EVALUATION ? POST-OPERATIVE OFFICE VISIT Routine 09/06/2021 10:00 AM [facility] 25 CERECFIRED CROWN ANT Routine 08/25/19 9:00 AM [facility] 25 CORE BUILDUP, INCLUDING ANY PINS WHEN REQUIRED Routine 08/24/2021 9:00 AM [facility] 25 ENDODONTIC THERAPY, ANTERIOR TOOTH (EXCLUDING FINAL YAZIDISM) Routine 08/24/2021 9:00 AM [facility] PANORAMIC RADIOGRAPHIC IMAGE Routine 08/24/2021 9:00 AM [facility] ADDITIONAL X-RAY Routine 08/24/2021 9:00 AM [facility] BITEWING - SINGLE RADIOGRAPHIC IMAGE Routine 08/24/2021 9:00 AM [facility] SINGLE X-RAY Routine 08/24/2021 9:00 AM [facility] LIMITED ORAL EVALUATION - PROBLEM FOCUSED Routine 08/24/2021 9:00 AM [facility] Visit Diagnoses Not on file Insurance [employer] HMO
== END 2024-04-30 12:53 | disposition home or self-care (01) ==
LOC: HO.MAMMO 12:52
DX: N63.25 Unspecified lump in the left breast, overlapping quadrants (principal); N64.4 Mastodynia; N64.89 Other specified disorders of breast
CPT/HCPCS: 76642; 77062; 77066

== ENCOUNTER → 2024-04-30 13:00 | Outpatient (BNV) | payer OTHER, SELFPAY | PROVIDERS: Visit Provider Internal Medicine | DX: R92.8 Other abnormal and inconclusive findings on diagnostic imaging of breast (principal) | CPT/HCPCS: 77062; 77066 ==

== ENCOUNTER 2024-07-14 10:13 | Outpatient (REF) | payer OTHER, SELFPAY ==
--- OUTSIDE RECORDS SUMMARY | 2024-07-14 12:57 | XMS_ITS | Encounter Summary ---
Author Organization [facility] Address [address] [place] [address] Care Team Providers Care Coater Operator Name Role Phone Unavailable Primary Care Provider Unavailabl e Prior Encounters Date Type Department Care Team Description 09/06/2021 10:00 AM [facility] Office Visit [place] [facility] [address], [facility] [address] [place] [address] Rachell Quesada DMD 08/24/2021 9:00 AM [facility] Office Visit [place] [facility] [address], [facility] [address] [place] [address] Rachell Quesada, CAMMIE Plan of Treatment Not on file Procedures Procedure Name Priority Date/Time Associated Diagnosis Comments CBCT - PROBLEM FOCUSED Routine 10:00 AM [facility] RE-EVALUATION ? POST-OPERATIVE OFFICE VISIT Routine 09/06/2021 10:00 AM [facility] 25 CERECFIRED CROWN ANT Routine 08/25/19 9:00 AM [facility] 25 CORE BUILDUP, INCLUDING ANY PINS WHEN REQUIRED Routine 08/24/2021 9:00 AM [facility] 25 ENDODONTIC THERAPY, ANTERIOR TOOTH (EXCLUDING FINAL PENTECOSTAL) Routine 08/24/2021 9:00 AM [facility] PANORAMIC RADIOGRAPHIC IMAGE Routine 08/24/2021 9:00 AM [facility] ADDITIONAL X-RAY Routine 08/24/2021 9:00 AM [facility] BITEWING - SINGLE RADIOGRAPHIC IMAGE Routine 08/24/2021 9:00 AM [facility] SINGLE X-RAY Routine 08/24/2021 9:00 AM [facility] LIMITED ORAL EVALUATION - PROBLEM FOCUSED Routine 08/24/2021 9:00 AM [facility] Visit Diagnoses Not on file Insurance [employer] HMO
--- OUTSIDE RECORDS SUMMARY | 2024-07-14 12:57 | XMS_ITS | Clinical Summary ---
Author Organization [facility] Address [address] [place] [address] Care Team Providers Care Metal Weigher Name Role Phone Unavailable Primary Care Provider [...]
--- OUTSIDE RECORDS SUMMARY | 2024-07-14 12:57 | XMS_ITS | Continuity of Care Document ---
Author Organization [facility] Address [address] [place] [address] Phone Care Team Providers Care Standards Analyst Name Role Phone Cl Robbins OD Unavailable Unavailable Advance Directives Directive Yes / No Effective Date File Name No Information Encounters Encounter Description Practice Location Reason(s) For Visit Diagnoses Date Provider Providers Copied on Encounter [facility], [address], [place], [id number], [place] tel:[phone] [facility] [address] No Information [facility] Smallwood. [address] [place] [address], [id number], [place]. tel:[phone] Family History Family Member Type Diagnosis Age [...]
[2024-07-14 18:24] LABS: Bacterial Vaginosis PCR NEGATIVE (Negative); Candida Group PCR NOT DETECTED (Not Detect); Candida glab krusei PCR NOT DETECTED (Not Detect); Trichomonas vaginalis PCR NOT DETECTED (Not Detect)
[2024-07-14 18:58] LABS: CT PCR NOT DETECTED (Not Detect.); NG PCR NOT DETECTED (Not Detect.)
[2024-07-17 14:01] LABS: HPV Genotype 16 Negative (Negative); HPV Genotype 18 Negative (Negative); HPV High Risk Negative (Negative)
== END 2024-07-14 10:14 | disposition home or self-care (01) ==
LOC: HO.LNP 10:13
PROVIDERS: Visit Provider Advanced Practice Midwife
DX: Z01.419 Encounter for gynecological examination (general) (routine) without abnormal findings (principal); Z11.3 Encounter for screening for infections with a predominantly sexual mode of transmission; G43.709 Chronic migraine without aura, not intractable, without status migrainosus; F32.A Depression, unspecified; F90.9 Attention-deficit hyperactivity disorder, unspecified type
CPT/HCPCS: 81515; 87491; 87591; 87626; 88175; 99385; 99459

== ENCOUNTER 2024-07-14 10:13 | Outpatient (AMB) | payer OTHER, SELFPAY ==
[2024-07-14 10:21] VITALS: BP 122/72; BMI 25.9
--- NOTE | 2024-07-14 10:21 | MHC.OFFVIS ---
Vital Signs 07/14/24 10:21 Height 6 ft Weight 191 lb 2 oz BMI 25.9 BP 122/72 Blood Pressure Location Lt brachial Position Sitting Intake Visit Reasons: annual Intake Note: would like to have a baby. Dysmennorhea Money Position Officer Required: No Information Interpreted: non-clinical & clinical Clinical Nurse Occupational Medicine: Clinical Nurse Occupational Medicine Present ([place]) Allergies paroxetine [From Paxil] Allergy (Severe, Verified 07/14/24 10:30) bleeding internally kiwi Allergy (Intermediate, Verified 07/14/24 10:30) burn latex Allergy (Intermediate, Verified 07/14/24 10:30) Burn Penicillins Allergy (Intermediate, Verified 07/14/24 10:30) Rash prochlorperazine [From Compazine] Allergy (Intermediate, Verified 07/14/24 10:30) Muscle Pain banana Adverse Reaction (Severe, Verified 07/14/24 10:30) mouth burn B12 Adverse Reaction (Severe, Uncoded 07/14/24 10:30) jaundice Medication List - Last Reconciled 07/14/24 by Florence Hinojosa LPN dextroamphetamine-amphetamine 20 mg (Adderall) 20 mg PO DAILY dextroamphetamine-amphetamine 30 mg ER (Adderall XR) 30 mg PO DAILY ondansetron HCl 4 mg PO Q6H sumatriptan succinate 100 mg PO DAILY PRN Is last menstrual period known: Yes Last menstrual period: 07/03/24 Post menopausal: No Patient : No HPI HPI annual: Details: patient is here for new balancer exam. She recently relocated here essentially moved back home from [place] after being there for many many years. She was in a marriage with female partner and she desires children of her own and that was not going to happen in that is situation so she moved back here to accomplish this goal. She is getting all of her healthcare issues checked out in ahead of time. She is anticipating getting blood work within the next couple of weeks and follow-up visit with her primary care provider she is in the process of arranging dental surgery to do to deal with infection that waxes and wanes status post dental surgery in the past. She has a history of chronic may migraines all her life and she has been all over the country being evaluated and has a every test and study that there is. she has recently discontinued many of the medications, and is currently only on medicines for ADD and also for Imitrex that she does take daily she wakes up with a headache every day. she gets regular cycles. [facility] Surgical History History of dental surgery Family History (Updated 07/14/24 @ 10:49 by Florence Hinojosa LPN) Mother Colon cancer metastasized to liver Paternal Grandmother Ovarian cancer Social History Housing: House Alcohol intake: current Alcohol intake frequency: holidays/special occasions only Patient Tobacco Use Status: Never used Tobacco e-Cigarette/Vaping Use: Former Use Second Hand Smoke Exposure: No service: No Current occupational status: unemployed Cognitive needs: No Hearing needs: No Vision needs: No Female Reproductive History Menstrual Age of Menarche: 12 Duration of menses: 6-7 days Date of last menstrual period: 07/03/24 Total pregnancies: 1 Ab spontaneous: 1 History of abnormal pap smear: No History of STI: No Physical Exam Vital Signs: Last Vital Signs BP 122/72 07/14/24 10:21 BMI result Body Mass Index 25.9 Const General: healthy appearing, comfortable, no acute distress, well developed and alert Nutritional Appearance: average body habitus Orientation/consciousness: patient oriented x3 Limitations: no limitations HEENT Head: Yes normocephalic Neck Neck: Yes normal visual inspection Chest Chest palpation & inspection: normal inspection of the chest Breast/axilla inspection: normal inspection of the breasts and normal inspection of the axillae Breast/axilla palpation: normal palpation of the breasts and normal palpation of the axillae Resp Effort & Inspection: normal respiratory effort GI Inspection: Yes normal to inspection, No Abdominal wall edema and No distended Palpation (GI): Soft to palpation and nontender Other: normal external exam is cervix pink nulliparous smooth healthy appearing did bleed a little bit with Pap smear. Discharge is scant and white. Cervix long close thick mobile nontender uterus midposition mobile nontender adnexa nontender good tone with Kegel. General: Yes bladder normal to palpation External Female Exam: normal external appearance and normal appearance of the urethra Speculum Exam - Vagina: normal appearance of the vagina, normal palpation and normal vaginal discharge Speculum Exam - Cervix: normal appearance of the cervix, normal palpation and nontender Bimanual exam- vagina & uterus: normal bimanual exam, normal palpation, uterine size normal, bladder normal to palpation, consistency normal, normal palpation, uterine mobility normal, uterine shape normal, No Cervical tenderness present, non-tender and no cervical motion tenderness Bimanual Exam- Adnexa, other: normal adnexae, no masses, normal and No adnexal tenderness Neuro General: patient oriented x3 Assessment & Plan Assessment & Plan (1) ADHD: Code(s): F90.9 - Attention-deficit hyperactivity disorder, unspecified type Category: Medical (2) Depression: Code(s): F32.A - Depression, unspecified Category: Medical (3) Jaw cyst: Code(s): M27.40 - Unspecified cyst of jaw Category: Medical (4) Chronic migraine w/o aura w/o status migrainosus, not intractable: Code(s): G43.709 - Chronic migraine without aura, not intractable, without status migrainosus Category: Medical (5) Cervical cancer screening: Code(s): Z12.4 - Encounter for screening for malignant neoplasm of cervix Category: Medical (6) Patient desires : Code(s): Z31.9 - Encounter for procreative management, unspecified Category: Medical (7) Encounter for screening examination for sexually transmitted disease: Code(s): Z11.3 - Encounter for screening for infections with a predominantly sexual mode of transmission Category: Medical (8) Well woman exam with routine gynecological exam: Code(s): Z01.419 - Encounter for gynecological examination (general) (routine) without abnormal findings Category: Medical Plan -----Discussed in this visit the following: healthy balanced diet, regular and consistent exercise, getting recommended health screens, doing the best she can for her particular health concerns, kegel exercises, pap smear screening and followup recommendations, mammography screening and SBE, normal changes in cycles in her life stage--- .---I discussed with pt some of the optimal strategies for planning a , including achieving the best health she can before , including heathy balanced diet, exercise, wt loss to ideal BMI if appropriate, avoiding toxic substances and medications, not smoking, and taking a multivitamin w folic acid daily. Any specific health concerns should be managed before seeking/ putting oneself at risk of pregancy. In addition I reviewed normal cycles, fertility awareness and signs of ovulation, and timing to avoid, and achieve when she feel ready. I also discussed emotional and relationship and support readiness before embarking on . she is doing her best to get all of her health issues addressed and screened for before she embarks on seeking a and is being very proactive in her search she is going to be getting her jaw issue taking care of within the next month she has recently had breast scanning because she was wanting to get that cleared 1st as well and she is getting blood work done to check for everything and we will be reviewing that with her primary care provider coming up within the next couple of weeks. I suggested starting on a multivitamin with folic acid and offered to order prenatals for her but she will clear with her primary 1st. I tried to place a referral to [facility] but they referral function seems not to be complete yet at this time. I urged her to go back in her history and see if she can write down exactly when her last period was for as long as she can and consider starting doing OB Ks as this will be beneficial to the future infertility provider's for her to have that data. she is aware of ovulation in terms of her cycle and physical changes that she experiences including libido changes breast changes etc.. also reviewed places that would be options for her to go for care and delivery including [facility], [address] [place] [address] in [place] and also [facility] as she lives in [place]. referral to [facility] at [facility] 1 yr Orders: Referrals Infertility Reproductive Referral (female) G43.709 - Chronic migraine without aura, not intractable, without status migrainosus, Z11.3 - Encounter for screening for infections with a predominantly sexual mode of transmission, Z12.4 - Encounter for screening for malignant neoplasm of cervix, Z31.9 - Encounter for procreative management, unspecified Coding Level of Care Code New Pt Prev Care 18-39yr([id number] Diagnoses ADHD F90.9 Depression F32.A Jaw cyst M27.40 Chronic migraine w/o aura w/o status migrainosus, not intractable G43.709 Cervical cancer screening Z12.4 Patient desires Z31.9 Encounter for screening examination for sexually transmitted disease Z11.3 Well woman exam with routine gynecological exam Z01.419
--- OUTSIDE RECORDS SUMMARY | 2024-07-14 10:40 | XMS_ITS | Clinical Summary ---
Author Organization [facility] Address [address] [place] [address] Care Team Providers Care Financial Planning Consultant Name Role Phone Unavailable Primary Care Provider [...]
--- OUTSIDE RECORDS SUMMARY | 2024-07-14 10:40 | XMS_ITS | Continuity of Care Document ---
Author Organization [facility] Address [address] [place] [address] Phone Care Team Providers Care Dinkey Brakeman Name Role Phone Cl Robbins OD Unavailable Unavailable Advance Directives Directive Yes / No Effective Date File Name No Information Encounters Encounter Description Practice Location Reason(s) For Visit Diagnoses Date Provider Providers Copied on Encounter [facility], [address], [place], [id number], [place] tel:[phone] [facility] [address] No Information [facility] Smallwood. [address] [place] [address], [id number], [place]. tel:[phone] Family History Family Member Type Diagnosis Age At Onset No Information Payers Payer name Insurance type Covered republican ID Authoriza tion(s) No Information Social History [...]
--- OUTSIDE RECORDS SUMMARY | 2024-07-14 10:40 | XMS_ITS | Encounter Summary ---
Author Organization [facility] Address [address] [place] [address] Care Team Providers Care Cleaner Signs Name Role Phone Unavailable Primary Care Provider Unavailabl e Prior Encounters Date Type Department Care Team Description 09/06/2021 10:00 AM [facility] Office Visit [facility] [address], [facility] [address] [place] [address] Rachell Quesada DMD 08/24/2021 9:00 AM [facility] Office Visit [facility] [facility] [address], [facility] [address] [place] [address] Rachell Quesada, CAMMIE Plan of Treatment Not on file Procedures Procedure Name Priority Date/Time Associated Diagnosis Comments CBCT - PROBLEM FOCUSED Routine 10:00 AM [facility] RE-EVALUATION ? POST-OPERATIVE OFFICE VISIT Routine 09/06/2021 10:00 AM [facility] 25 CERECFIRED CROWN ANT Routine 08/25/19 9:00 AM [facility] 25 CORE BUILDUP, INCLUDING ANY PINS WHEN REQUIRED Routine 08/24/2021 9:00 AM [facility] 25 ENDODONTIC THERAPY, ANTERIOR TOOTH (EXCLUDING FINAL HOAHAOISM) Routine 08/24/2021 9:00 AM [facility] PANORAMIC RADIOGRAPHIC IMAGE Routine 08/24/2021 9:00 AM [facility] ADDITIONAL X-RAY Routine 08/24/2021 9:00 AM [facility] BITEWING - SINGLE RADIOGRAPHIC IMAGE Routine 08/24/2021 9:00 AM [facility] SINGLE X-RAY Routine 08/24/2021 9:00 AM [facility] LIMITED ORAL EVALUATION - PROBLEM FOCUSED Routine 08/24/2021 9:00 AM [facility] Visit Diagnoses Not on file Insurance [employer] HMO
== END 2024-07-14 12:31 | disposition home or self-care (01) ==
PROVIDERS: Visit Provider Advanced Practice Midwife
DX: Z01.419 Encounter for gynecological examination (general) (routine) without abnormal findings (principal)
CPT/HCPCS: 99385; 99459

== ENCOUNTER 2024-07-29 14:18 | Outpatient (AMB) | payer OTHER, SELFPAY ==
--- OUTSIDE RECORDS SUMMARY | 2024-07-29 14:26 | XMS_ITS | Clinical Summary ---
Author Organization [facility] Address [address] [place] [address] Care Team Providers Care Director Of Financial Aid Name Role Phone Unavailable Primary Care Provider [...]
--- NOTE | 2024-07-29 14:28 | A.OFFPC_ITS ---
Vital Signs 07/29/24 14:30 07/29/24 14:53 Height 6 ft Weight 190 lb 4 oz BMI 25.8 BP 140/82 H 120/82 Blood Pressure Location Lt brachial Lt brachial Position Sitting Sitting Pulse 109 H 96 Pulse Source Pulse Oximeter Auscultation Temp 97.3 F Temp Source Temporal Artery Scan Pulse Oximetry (%) 98 Oxygen Delivery Method Room Air Intake Visit Reasons: 3 months Intake Note: Patient is here to follow up on Chronic pain, Chronic migraine, Gilbert syndrome and ADHD. Transit Driver Required: No Rn Immunology: Not Required per policy Accompanied by: Self / Same As Patient Allergies paroxetine [From Paxil] Allergy (Severe, Verified 07/29/24 14:37) bleeding internally kiwi Allergy (Intermediate, Verified 07/29/24 14:37) burn latex Allergy (Intermediate, Verified 07/29/24 14:37) Burn Penicillins Allergy (Intermediate, Verified 07/29/24 14:37) Rash prochlorperazine [From Compazine] Allergy (Intermediate, Verified 07/29/24 14:37) Muscle Pain banana Adverse Reaction (Severe, Verified 07/29/24 14:37) mouth burn B12 Adverse Reaction (Severe, Uncoded 07/29/24 14:37) jaundice Medication List - Last Reconciled 07/29/24 by Patricia Singer PA-C dextroamphetamine-amphetamine 20 mg (Adderall) 20 mg PO DAILY dextroamphetamine-amphetamine 30 mg ER (Adderall XR) 30 mg PO DAILY ondansetron HCl 4 mg PO Q6H sumatriptan succinate 100 mg PO DAILY PRN Tobacco use date assessed: 07/29/24 Dental Screening Dental Screen Date: 03/07/24 HPI 3 months HPI Details 39-year-old female with past medical his tory of ADHD, migraine, Gilbert's syndrome, depression last seen 04/2024 coming in for follow up. Presenting with chronic migraines. She currently uses Imitrex daily for management and experiences fewer higher pain days with current management. Persistent morning headaches are associated with symptoms of brain swelling and vomiting, often incapacitating upon waking. Multiple pain management consultations yielded little resolution, highlighting the need for a neurologist open to complex migraine management, particularly as ineffective treatments such as Botox have been previously attempted. She will attend an appointment at [facility] for further support in her neurological care as she reports inconsistent past engagements from healthcare providers. [facility] Surgical History History of dental surgery Family History Mother Colon cancer metastasized to liver Paternal Grandmother Ovarian cancer Social History Housing: House Alcohol intake: current Alcohol intake frequency: holidays/special occasions only Patient Tobacco Use Status: Never used Tobacco e-Cigarette/Vaping Use: Former Use Second Hand Smoke Exposure: No service: No Current occupational status: unemployed Cognitive needs: No Hearing needs: No Vision needs: No Female Reproductive History Menstrual Age of Menarche: 12 Questionnaire PHQ-9 Over the last 2 weeks, how often have you been bothered by any of the following problems? 1. Little interest or pleasure in doing things: several days 2. Feeling down, depressed, or hopeless: several days 3. Trouble falling or staying asleep, or sleeping too much: several days 4. Feeling tired or having little energy: several days 5. Poor appetite or overeating: several days 6. Feeling bad about yourself - or that you are a failure or have let yourself or your family down: several days 7. Trouble concentrating on things, such as reading the newspaper or watching television: several days 8. Moving or speaking so slowly that other people could have noticed. Or the opposite - being so fidgety or restless that you have been moving around a lot more than usual: several days 9. Thoughts that you would be better off or of hurting yourself in some way: not at all Total score: 8 Depression Screening Interpretation: Positive Depression Screening Follow-up: Existing condition Depression Screening Done: Yes Source: Developed by Drs. Frandy Portillo, Rachel Sr, Mike Vu and colleagues, with an educational chris from [employer]. Thrive Questionnaire Date Thrive assessed: 04/28/24 I am a: Patient What is your living situation today?: I have a steady place to live Within the past 12 months, did the food you bought not last and you didn't have the money to get more?: I choose not to answer this question Within the past 12 months, did you worry whether your food would run out before you got money to buy more?: Never true Do you have trouble paying for medicines?: I choose not to answer this question Do you have trouble getting transportation to medical appointments?: No Do you have trouble paying your heating and electricity bill?: No Do you have trouble taking care of your child, family member or friend?: No Do you have trouble with day-to-day activities such as bathing, preparing meals, shopping, managing finances, etc.?: No Are you currently unemployed and looking for a job?: I choose not to answer this question Are you interested in more education?: I choose not to answer this question Please select the resources that you would like help with: None Currently or been in a relationship where the following occur: No concerns reported THRIVE Score: 0 ALLISON-7 AMB Questionnaire ALLISON-7 Date ALLISON - 7 assessed: 03/07/24 Source: Developed by Drs. Frandy Portillo, Rachel Sr, Mike Vu and colleagues, with an educational chris from [employer]. Review of Systems Const Denies body aches, Denies chills, Denies fever(s), Reports headache(s) and Denies poor appetite Eyes Reports no additional complaints ENT Denies dysphagia, Denies dizziness, Reports headache(s) and Denies odynophagia Card Denies chest pain, Denies irregular heart rhythm, Denies lightheadedness and Denies dyspnea Resp Denies cough and Denies dyspnea GI Denies abdominal pain, Denies constipation, Denies dysphagia, Denies diarrhea, Reports nausea, Denies odynophagia and Reports vomiting Reports no additional complaints Musc Reports no additional complaints and Denies abnormal gait Skin/Breast Reports system reviewed and no additional complaints, except as documented Neuro Denies abnormal gait, Denies dizziness and Reports headache(s) Psych Reports no additional complaints Physical exam (Primary Care) Vital Signs: Last Vital Signs Temp 97.3 F 07/29/24 14:30 Pulse 96 07/29/24 14:53 BP 120/82 07/29/24 14:53 Pulse Ox 98 07/29/24 14:30 Oxygen Delivery Method Room Air 07/29/24 14:30 BMI result Body Mass Index 25.8 Tobacco/Smoking Status: Tobacco use Status Tobacco use date assessed 07/29/24 07/29/24 14:35 Patient Tobacco Use Status Never used Tobacco 07/29/24 14:35 e-Cigarette/Vaping Use Former Use 07/29/24 14:35 PHQ-9: PHQ-9 Score PHQ-9: Total score 8 07/29/24 14:42 Depression Screening Interpretation: Positive Depression Screening Follow-up: Existing condition Thrive Assessment: Date of Thrive Assessment Date Thrive assessed 04/28/24 07/29/24 14:35 Currently or been in a relationship where the following occur: No concerns reported Const General: cooperative, healthy appearing, comfortable and no acute distress Orientation/consciousness: patient oriented x3 HENMT Head: Yes normocephalic Ears: hearing grossly normal bilaterally General nose exam: Normal external nose present Eyes General: appearance normal, both eyes and all related structures Conjunctivae: conjunctivae normal Neck Neck: Yes full ROM and Yes no lymphadenopathy Resp Effort & Inspection: normal respiratory effort Auscultation: clear to auscultation bilaterally, no crackles, no rales, no rhonchi and no wheezes Cardio Rate: regular rate Rhythm: regular rhythm Skin General skin exam: no rashes or lesions noted Neuro General: patient oriented x3 Gait exam (Neuro): Normal gait present Extrem General: Yes normal to inspection, Yes full ROM and No edema Psych Affect: normal affect Attitude: cooperative Insight: Good insight present (Psych) Judgement: Good judgement present (Psych) Coding Level of Care Code Est Pt Level 3 (28732) Diagnoses Chronic pain syndrome G89.4 Chronic migraine w/o aura w/o status migrainosus, not intractable G43.709 Depression F32.A ADHD F90.9 Assessment & Plan Assessment & Plan (1) Chronic pain syndrome: Code(s): G89.4 - Chronic pain syndrome Category: Medical Plan: Recommend patient following up with neurologist. (2) Chronic migraine w/o aura w/o status migrainosus, not intractable: Code(s): G43.709 - Chronic migraine without aura, not intractable, without status migrainosus Category: Medical Plan: Patient has a appointment coming up with Neurology continue on sumatriptan and Zofran as needed in the meantime. (3) Depression: Code(s): F32.A - Depression, unspecified Category: Medical Plan: Counseling referral discussed with patient at last visit plan to follow up on this referral as she has not yet made an appointment. Message was sent to community navigation. (4) ADHD: Code(s): F90.9 - Attention-deficit hyperactivity disorder, unspecified type Category: Medical Plan: Continue on Adderall extended release and short-acting patient will need to follow up every 3 months for refill. Plan Upcoming consultation with [facility] aims to stabilizing her treatments and address metabolic influences affecting medication efficacy. Medication refills for Imitrex will continue as planned, subject to her symptom report. Collaboratively, any healthcare provider will aim for continuity of care and explore methods, including treatments or lifestyle adjustments, to alleviate stress, supporting overall health maintenance. This note was constructed using voice recognition software. While every effort has been made to ensure accuracy and vice president business development, still areas may have been included sometimes these areas may affect the content or meeting of the given symptoms. Total time spent caring for the patient today was 30 minutes. This includes time spent before the visit reviewing the chart, time spent during the visit, and time spent after the visit and documentation. Medications: Refilled dextroamphetamine-amphetamine 20 mg (Adderall) take 20 mg at 3 pm in the afternoon 20 mg PO DAILY 30 tabs 0RF dextroamphetamine-amphetamine 30 mg ER (Adderall XR) take 30mg ER daily in the morning 30 mg PO DAILY 30 caps 0RF sumatriptan succinate 100 mg PO DAILY PRN 30 tabs 3RF migraine
[2024-07-29 14:30] VITALS: BP 140/82; PULSE 109; TEMP 36.3; O2SAT 98; BMI 25.8
[2024-07-29 14:53] VITALS: BP 120/82; PULSE 96
== END 2024-07-29 15:02 | disposition home or self-care (01) ==
LOC: HO.HMCH 14:19
DX: G89.4 Chronic pain syndrome (principal); G43.709 Chronic migraine without aura, not intractable, without status migrainosus; F32.A Depression, unspecified; F90.9 Attention-deficit hyperactivity disorder, unspecified type

== ENCOUNTER → 2024-07-29 14:18 | Outpatient (BNVA) | payer OTHER, SELFPAY | DX: G89.4 Chronic pain syndrome (principal); G43.709 Chronic migraine without aura, not intractable, without status migrainosus; E80.4 Gilbert syndrome; F90.9 Attention-deficit hyperactivity disorder, unspecified type | CPT/HCPCS: 99212 ==

== ENCOUNTER → 2024-07-30 07:49 | Outpatient (REF) | payer OTHER, SELFPAY ==
--- NOTE | ~2024-07-30 | NM_ITS ---
Lexiscan Myocardial perfusion study Indication: Chest pain to evaluate for myocardial ischemia Technique: The patient was brought in for a Lexiscan perfusion study on July 30, 2024 and was injected 0.4 mg of Lexiscan intravenously. Within a minute of this injection 30 mCi of sestamibi was given intravenously. Images were obtained using the SPECT gamma camera interlaced with the gating device. Images were obtained in supine position. Resting perfusion study was performed on August 01, 2024. Patient was administered 30 mCi of sestamibi intravenously at rest. Images were then obtained in supine position. Images obtained without without CT attenuation. Total DLP 87 mGy-cm. Images were processed with the software and compared side to side in short axis, horizontal long axis and vertical long axis views. Findings: Post stress and rest perfusion study suggestive of dense breast shadow overlying the myocardial uptake The stress perfusion study showed nonattenuated images show mildly reduced uptake in the anterior, moderately reduced uptake in the apex as well as mildly reduced uptake in the inferoapical as well as inferolateral wall of the LV myocardium.. Attenuated corrected images show mildly increased uptake in the basal inferior mid mildly to moderately reduced uptake in the mid anterior, distal anterior as well as apex of the LV myocardium. Mildly reduced uptake and inferoapical wall of the LV myocardium is well.. The gated study shows normal LV systolic function with calculated LVEF of 72%. LV cavity is mildly dilated in size. The gated study shows normal systolic wall thickening and contraction of segments. Resting study shows nonattenuated images show improved uptake in the anterior wall, apex, inferoapical as well as inferolateral wall of the LV myocardium. Attenuated corrected images also shows improved uptake in the apex as well as the mid to distal anterior wall of the LV myocardium. Gating at rest reveals normal systolic wall motion with ejection fraction at 71%. The findings are consistent with cysts was attenuated as well as nonattenuated corrected images show focal defect. Suggestion of evident reversible defect in the mid to distal anterior wall as well as the apex suggestive of ischemia the LAD territory.. NM/NM cardiolite stress test Impression: 1. Myocardial perfusion imaging study shows reversible defect and LAD territory suggestive of ischemia 2. Gated LVEF is 71% 3. Transient ischemic dilatation present Nondiagnostic changes on EKG. Electronically signed by: Jevon Ellis MD 08/01/2024 12:25 PM EDT RP
--- OUTSIDE RECORDS SUMMARY | 2024-07-30 07:51 | XMS_ITS | Continuity of Care Document ---
Author Organization [facility] Address [address] [place] [address] Phone Care Team Providers Care Plant Senior Manager Name Role Phone Cl Robbins OD Unavailable Unavailable Advance Directives Directive Yes / No Effective Date File Name No Information Encounters Encounter Description Practice Location Reason(s) For Visit Diagnoses Date Provider Providers Copied on Encounter [facility], [address], [place], [id number], [place] tel:[phone] [facility] No Information [facility]. [address] [place] [address], [id number], [place]. tel:[phone] Family History Family Member Type Diagnosis Age [...]
--- NOTE | 2024-07-30 07:52 | CA_ITS ---
Acquisition Time: 2024-07-30 08:07:58 Total Exercise Time: 00:02:00 Test Indications: CP Medications: ADDERALL DICLOFENAC METHOCARBAMOL SUMATRIPTAN TIZANADINE Protocol: LEXISCAN Max HR: 127 BPM 70% of Pred: 181 BPM Max BP: 114/72 mmHG Max Work Load: 1.6 METS Pharmacological stress test with Lexiscan while pt walks slow on the treadmill, with reports of lightheadedness and headache, without any arrythmias, with normotensive response to injection. Nondiagnostic EKG for ischemia. In recovery, pt treated with IVP Aminophylline 75 mg to reverse Lexiscan after which pt feeling back to baseline. Nuclear images pending. Test reviewed with Dr. Ellis. Referred By: Patricia Singer Electronically Signed By: Jameson Harmon
== END ==
LOC: HO.CARD 07:49
DX: R07.9 Chest pain, unspecified (principal)
CPT/HCPCS: 78452; 93017; A9500; J0280; J2785

== ENCOUNTER → 2024-07-30 07:52 | Outpatient (BNV) | payer OTHER, SELFPAY | DX: I25.5 Ischemic cardiomyopathy (principal) | CPT/HCPCS: 78452; 93016; 93018 ==

== ENCOUNTER 2024-07-31 11:01 | Outpatient (AMB) | payer OTHER, SELFPAY ==
[2024-07-31 11:05] VITALS: BP 120/84; PULSE 117; O2SAT 99; BMI 25.9
--- NOTE | 2024-07-31 11:05 | A.OFFVIS_ITS ---
Vital Signs 07/31/24 11:05 Height 6 ft Weight 191 lb BMI 25.9 BP 120/84 Blood Pressure Location Rt brachial Position Sitting Pulse 117 H Pulse Source Pulse Oximeter Pulse Oximetry (%) 99 Oxygen Delivery Method Room Air Intake Visit Reasons: INP-Migraines Intake Note: Internal referral for migraines. 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 Accompanied by: Self / Same As Patient Allergies paroxetine [From Paxil] Allergy (Severe, Verified 07/31/24 11:09) bleeding internally kiwi Allergy (Intermediate, Verified 07/31/24 11:09) burn latex Allergy (Intermediate, Verified 07/31/24 11:09) Burn Penicillins Allergy (Intermediate, Verified 07/31/24 11:09) Rash prochlorperazine [From Compazine] Allergy (Intermediate, Verified 07/31/24 11:09) Muscle Pain banana Adverse Reaction (Severe, Verified 07/31/24 11:09) mouth burn B12 Adverse Reaction (Severe, Uncoded 07/29/24 14:37) jaundice Medication List - Last Reconciled 07/31/24 by VIRGILIO Nguyen dextroamphetamine-amphetamine 20 mg (Adderall) 20 mg PO DAILY dextroamphetamine-amphetamine 30 mg ER (Adderall XR) 30 mg PO DAILY ondansetron HCl 4 mg PO Q6H sumatriptan succinate 100 mg PO DAILY PRN HPI Comments Details: Right-handed 39-yr-old female presents for new pt evaluation of headache disorder, who was [place] [facility] [place]. Pt reports she has had migraine since age 13-15 yrs old. Pt states she was dx'd w/ chronic migraine and cluster headache. She reports she has had a constant headache of varying intensity for > 10 yrs, has had maybe 12 headache free days in the last 10 yrs. states that over the last 20+ years, she has seen many neurologists, including in [place], however they have never been able to find a consistently effective treatment plan for her migraine and cluster headache. she last saw neurology > 5-6 years ago. While in [place], she was seen pain management/headache specialist at [facility] [place]. Her migraine and cluster headache were treated with scheduled Wagener, daily sumatripta/Excedrin, and occipital trigger point injections ( Corticosteroid / nerve block ). However, she has stopped the Wagener and recently stopped all of her other medications except for her Adderall and Sumatriptan and Excedrin. She did start seeing [facility] [place] upon moving back to [place], and did a bilateral Sphenopalatine nerve block procedure, however it was ineffective and she did not tolerate it well. They had also discussed trying and occipital peripheral nerve stimulator for occipital neuralgia symptoms of chronic migraine and cervical spondylosis- which patient was advised to follow-up with the office if she would like to pursue this. Note, she has never tried any CGRP antagonist therapy or O2 therapy. Patient reports she is originally from [place], however moved to [place] approximately 12 years, and recently moved back here about 6 months ago- leaving her and family they are behind- in order to focus on her health and well-being. PMH and ROS are notable for:? General: fatigue. Vision: h/o Lasik procedure- more recently noticed decreased right eye vision- had neuro-ophthalmology eval, and was reassured. Childhood: prone to vomiting after meals, isidoro in the am. Prone to motion sickness. denies infantile colic. 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 Notes general high pain tolerance. Musculoskeletal disorders or injury: Endorses horrible posture , has not been as mobile d/t the headache in the last 2 yrs. states was very flexible when younger, was able to touch the floor with her hands flat during toe-touch, and bring her back of her foot to the back of her head- She will concur herself up to a very ball even though she is 6 ft tall History of concussion/head injury: Denies Mood d/o: anxiety and depression- pt feels r/t adjustment to significant life changes, chronic illness. ADD. Respiratory d/o: Denies CV disease: Denies. Had episodes of CP prior to leaving [place]- saw cardiology in [place], and now in [facility]- undergoing cardiac work-up. States workup has been normal so far. Clotting or hematology d/o: Denies Endocrine or metabolic d/o: Denies History of seizure: Denies History of syncope: Denies : Denies GI d/o: Irregular BM, nausea- With headache, some constipation- generally does not have an appetite. taking a shake for breakfast and dinner, trying to add vitamins to help. 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 Family history of migraine or other headache disorder: father- when younger, sister, aunt Lifestyle considerations: Sleep routine: Usual bedtime: 10pm and wake-up time: 9am Sleep difficulties: Endorses: difficulty falling asleep, ruminating thoughts. Bruxism- more so when headache coming on in her sleep- has used a mouth guard and broken some. denies snoring, gasping arousals, apneas. Caffeine use: Rarely takes caffeine. But takes Excedrin daily. Substance use: Tobacco- 1-2 cigarettes per week, prior in [place] she smoked more regularly. Rare alcohol use- triggers a screaming headache. Exercise:?walking, hikes Employment:?unemployed, living with family. 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 Headache questionnaire:? Age/time of onset: [age] years old Preceding causes: none Previous work-up: previous head imaging showed intracranial aneurysm. states of previous EEG many years ago showed possible cerebral dysfunction / swelling. Types of headache disorders: 2- chronic migraine and cluster headache Typical chronic migraine headache characteristics: Prodrome symptoms: unknown Aura: denies Pain intensity: Constant, at least 3-4/10, most mornings 8/10, can be 10/10. Location, quality, characteristics: Wakes up feeling like there is not enough room in her head for her brain to fit. Starts as right or left unilateral pain, but become holocranial. Associated symptoms: unilateral eyelid droop- pt feels she is closing her eye some, photophobia, phonophobia, osmophobia, allodynia, nausea, when more severe vomiting, not right in space dizziness, fatigue, cognitive difficulties, activity intolerance, Postdrome: shadow headache or migraine hangover Triggers: poor fluid intake, hunger, lights, sounds, poor sleep, stress, Menstrual cycle Time of day: builds during sleep Duration and Frequency: constant- w/ fluctuations How does headache impact your life? severely limits activities Typical cluster headache characteristics: Headache: A more severe, unilateral ( right or left ) frontal/occipital swelling/warmth- throbbing pain. Associated symptoms: ipsilateral facial swelling, phonophobia, hyperacusis, nausea vomiting, need to rock her body- but does not want to move her head Time of day: Builds during sleep. Duration: Difficult to tell, due to constant nature of concomitant migraine. Triggers: Alcohol Current acute medication use/interventions: Using sumatriptan 100mg and excedrin daily. Current preventative medication use: essentially using sumatriptan and Excedrin as preventive measure. Current non-pharmacological interventions: Rest, cold application PFSH Surgical History History of dental surgery Family History Mother Colon cancer metastasized to liver Paternal Grandmother Ovarian cancer Social History Housing: House Alcohol intake: current Alcohol intake frequency: holidays/special occasions only Patient Tobacco Use Status: Never used Tobacco e-Cigarette/Vaping Use: Former Use Second Hand Smoke Exposure: No service: No Current occupational status: unemployed Cognitive needs: No Hearing needs: No Vision needs: No Female Reproductive History Menstrual Age of Menarche: 12 Physical Exam Vital Signs: Last Vital Signs Pulse 117 H 07/31/24 11:05 BP 120/84 07/31/24 11:05 Pulse Ox 99 07/31/24 11:05 Oxygen Delivery Method Room Air 07/31/24 11:05 BMI result Body Mass Index 25.9 Const Orientation/consciousness: patient oriented x3 Resp Effort & Inspection: normal respiratory effort and able to speak in complete sentences Neuro Other: No palpable scalp pain. good overall cervical range of motion. bilateral Spurling elicits right lower cervical paraspinal nonradiating tenderness. Able to fully open mouth, no significant TMJ crepitus, though mild signs of lower teeth wearing General: patient oriented x3 Cranial nerves: Yes Individual cranial nerve findings present II: normal, III: abnormal ( left eye ptosis), IV: normal, V: normal, : normal, VII: abnormal ( left lower facial droop- patient attributes to need for left dental work), VIII: normal, IX: normal, X: normal, XI: normal and XII: normal Cognition (Neuro): normal cognition Gait exam (Neuro): Normal gait present Motor exam (neuro): 5/5 motor strength present throughout Deep tendon reflexes (DTR's): Right triceps reflex intensity grade: 2+, Left triceps reflex intensity grade: 2+, Rt Biceps (C5, C6): 2+, Left biceps reflex intensity grade: 2+, Right brachioradialis reflex intensity grade: 2+, Left brachioradialis reflex intensity grade: 2+, Right patellar reflex intensity grade: 2+ and Left patellar reflex intensity grade: 2+ Coordination: [id number] test normal, tandem gait normal and Romberg test negative Pupils: Normal pupillary reactivity/response: bilateral Psych Appearance: grossly normal Mental Status: mental status grossly normal Speech and movement: Normal speech and movement present Affect: normal affect Attitude: cooperative Thought process: Normal thought process present Assessment & Plan Assessment & Plan (1) Nocturnal headaches: Comment: ? secondary headache, pressure headache process, cervicogenic component. ? component of chronic migraine versus cluster headache. Code(s): R51.9 - Headache, unspecified Category: Medical (2) Intracranial aneurysm: Code(s): I67.1 - Cerebral aneurysm, nonruptured Category: Medical (3) Cluster headaches: Code(s): G44.009 - Cluster headache syndrome, unspecified, not intractable Category: Medical Qualifiers: Headache chronicity pattern: unspecified pattern Intractability: not intractable Qualified Code(s): G44.009 - Cluster headache syndrome, unspecified, not intractable (4) Chronic migraine without aura: Code(s): G43.709 - Chronic migraine without aura, not intractable, without status migrainosus Category: Medical Qualifiers: Status migrainosus presence: with status migrainosus Intractability: intractable Qualified Code(s): G43.711 - Chronic migraine without aura, intractable, with status migrainosus Plan Pt advised to undergo: Brain MRI with and without contrast (w/ PAVAN scoring), brain MRA without contrast, and brain MRV with and without contrast, to assess for secondary underlying etiologies of worsening headaches, cluster headaches, ptosis, facial swelling in setting of previously observed intracranial aneurysm, hypermobility. Labs as ordered- by GNY and PCP Future considerations: Sleep study, For overall headache management: * Optimize good self-care, including but not limited to maintaining a healthy diet, adequate fluid intake, adequate sleep, and engaging in regular physical activity. * Track headaches, especially after any treatment regimen changes. Migraine Wallept is one of many headache tracking apps. * Information shared on non-pharmacological interventions which may help to alleviate headache attack burden. For sound sensitivity: Patent may benefit from trying noise cancellation ear plugs. Neuromodulation devices, which can be used alone or with pharmacological treatment. * Future considerations: PT for myofascial release and craniosacral therapy For acute migraine headache treatment: Decrease Excedrin use. Continue Sumatriptan 100mg tab, at onset of headache, may repeat in 2 hours. Max of 2 tabs (200mg) per 24 hours. Previous acute migraine medication trials: Mobic C- ineffective, naproxen ine ffective. dexamethasone-ineffective. Diclofenac-ineffective Acute migraine medication contraindications: None at this time Future considerations: Trial of alternate triptan, trial of DHE, trial of gepant For headache prevention medication: Preventative medications should be taken routinely as prescribed for best effect, it may take several weeks for full effect to take effect. Continue OTC magnesium. Start Atogepant (Qulipta) 60mg daily at bedtime. Potential side effects include but are not limited to drowsiness, nausea, constipation, weight loss. Previous migraine prevention medication trials: * topiramate- tried for greater than 60 days, ineffective * propranolol and metoprolol- both tried both greater than 60 days, ineffective * verapamil- tried for greater than 60 days, ineffective * amitriptyline and nortriptyline- both tried both greater than 60 days, ineffective * oxcarbazepine- tried for greater than 60 days, ineffective * indomethacin- ineffective, unsure of trial duration or dose * duloxetine, gabapentin, pregabalin- each tried for greater than 60 days, ineffective * oxcarbazepine and Depakote- both tried for greater than 60 days, ineffective * Botox, preempt protocol- multiple sessions, ineffective * cyclobenzaprine- tried for greater than 60 days, ineffective * baclofen- not tolerated, cause confusion * tizanidine 2 mg q.a.m. and 4 mg q.h.s.- had some benefit * norco- scheduled for years, not very effective. * Bilateral Sphenopalatine nerve block- x's 1- ineffective and poorly tolerated Migraine prevention medication contraindications: CGRP monoclonal antibody therapies, as patient desires , and these have long half lives. Depakote, topiramate- as these are teratogenic in a female of child-bearing age. For cluster headache: Start home O2 at 15-25 L/min via non-rebreather face mask x's 15-20 minutes at onset of cluster headache attack, May repeat as needed, max of 4 hours per day. Patient will require both M tanks and E tanks. Will follow-up upon review of above and patient to follow-up in clinic in 3-4 months or sooner prn. Orders: Orders MR head/brain wo/w con Today H02.409 - Unspecified ptosis of unspecified eyelid, H54.61 - Unqualified visual loss, right eye, normal vision left eye, I67.1 - Cerebral aneurysm, nonruptured, R51.9 - Headache, unspecified MR angio head wo con Today H02.409 - Unspecified ptosis of unspecified eyelid, H54.61 - Unqualified visual loss, right eye, normal vision left eye, I67.1 - Cerebral aneurysm, nonruptured, R51.9 - Headache, unspecified MR venography head wo/w con Today H02.409 - Unspecified ptosis of unspecified eyelid, H54.61 - Unqualified visual loss, right eye, normal vision left eye, I67.1 - Cerebral aneurysm, nonruptured, R51.9 - Headache, unspecified Medications: New atogepant (Qulipta) 60 mg PO DAILY 30 days 30 tabs 6RF G43.709 - Chronic migraine without aura, not intractable, without status migrainosus Oxygen Home Use Start home O2 at 15-25 L/min via non-rebreather facemask x's 15- 20 minutes at onset of cluster headache attack, MR as needed (max 4 hrs per day). Patient will require both M tanks and E tanks. 1 ea 6RF G44.009 - Cluster headache syndrome, unspecified, not intractable Coding Level of Care Code New Pt Level 4 (76025) Diagnoses Nocturnal headaches R51.9 Intracranial aneurysm I67.1 Cluster headache, not intractable, unspecified chronicity pattern G44.009 Headache chronicity pattern: unspecified pattern Intractability: not intractable Intractable chronic migraine without aura and with status migrainosus G43.711 Status migrainosus presence: with status migrainosus Intractability: intractable
--- OUTSIDE RECORDS SUMMARY | 2024-07-31 11:30 | XMS_ITS | Clinical Summary ---
Author Organization [facility] Address [address] [place] [address] Care Team Providers Care Line Rider Name Role Phone Unavailable Primary Care Provider [...]
== END 2024-07-31 13:11 | disposition home or self-care (01) ==
LOC: HO.HSMS 11:01
PROVIDERS: Absent Provider Nurse Practitioner Family; Visit Provider Nurse Practitioner Family
DX: R51.9 Headache, unspecified (principal); I67.1 Cerebral aneurysm, nonruptured; G44.009 Cluster headache syndrome, unspecified, not intractable; G43.711 Chronic migraine without aura, intractable, with status migrainosus
CPT/HCPCS: 99204

== ENCOUNTER → 2024-07-31 11:01 | Outpatient (BNVA) | payer OTHER, SELFPAY | PROVIDERS: Absent Provider Nurse Practitioner Family; Visit Provider Nurse Practitioner Family | DX: G44.009 Cluster headache syndrome, unspecified, not intractable (principal); G43.711 Chronic migraine without aura, intractable, with status migrainosus; R51.9 Headache, unspecified; I67.1 Cerebral aneurysm, nonruptured | CPT/HCPCS: 99202 ==

== ENCOUNTER 2024-08-01 07:22 | Outpatient (REF) | payer OTHER, SELFPAY ==
[2024-08-01 07:41] LABS: MANUAL DIFF FLAG NO
[2024-08-01 08:00] LABS: Basophils Absolute Auto 0.1 X10*3/uL (0.0-0.2); Basophils Percent Auto 0.9 % (0-2); Eosinophils Absolute Auto 0.1 X10*3/uL (0.0-0.4); Eosinophils Percent Auto 1.8 % (0-4); Hematocrit 41.3 % (37.0-47.0); Hemoglobin 14.7 g/dl (12.0-16.0); Imm Gran Abs Auto 0.03 X10*3/uL (0.00-0.03); Imm Gran Pct Auto 0.4 % (0.0-0.4); Lymphocytes Absolute Auto 2.4 X10*3/uL (1.2-4.9); Lymphocytes Percent Auto 31.1 % (20-40); Mean Corpuscular HGB Conc 35.6 g/dl (31.0-35.0); Mean Corpuscular Hemoglobin 32.6 pg (27.0-33.0); Mean Corpuscular Volume 91.6 fL (80.0-98.0); Mean Platelet Volume 9.9 fL (9.4-12.3); Monocytes Absolute Auto 0.7 X10*3/uL (0.1-1.2); Monocytes Percent Auto 9.5 % (2-11); Neutrophils Absolute Auto 4.4 x10*3/uL (2.0-8.3); Neutrophils Percent Auto 56.3 % (45-73); Platelet Count 390 X10*3/uL (160-400); Red Blood Count 4.51 X10*6/uL (4.20-5.50); Red Cell Distribution Width 12.7 % (11.0-16.0); White Blood Count 7.8 X10*3/uL (4.8-10.8)
[2024-08-01 08:34] LABS: Alanine Aminotransferase 14 U/L (0-31); Albumin Level 4.4 g/dL (3.5-5.0); Alkaline Phosphatase 59 U/L (39-117); Anion Gap 14 (12-20); Aspartate Amino Transferase 15 U/L (5-31); Bilirubin Total 2.1 mg/dL (0.0-1.0); Blood Urea Nitrogen 17 mg/dL (9-16); Calcium 9.5 mg/dL (8.4-10.2); Carbon Dioxide 21 mmol/L (22-29); Chloride 109 mmol/L (96-108); Cholesterol 147 mg/dL (<200); Estimated Glomerular Filt Rate > 60; Glucose Random 85 mg/dL (60-115); HDL Cholesterol 56 mg/dL (>40); LDL Cholesterol Calculated 79 mg/dL (<100); Potassium 3.6 mmol/L (3.3-5.1); Sodium 140 mmol/L (135-145); Total Protein 7.1 g/dL (6.5-8.0); Triglycerides 63 mg/dL (<150)
[2024-08-01 08:53] LABS: TSH reflex Free T4 1.87 uIU/mL (0.32-4.0)
[2024-08-01 09:05] LABS: Folate 7.6 ng/mL (> or = 4.0); Vitamin B12 273 pg/mL (200-900)
== END 2024-08-01 07:23 | disposition home or self-care (01) ==
LOC: HO.LAB 07:22
DX: Z00.00 Encounter for general adult medical examination without abnormal findings (principal); E78.00 Pure hypercholesterolemia, unspecified; Z13.29 Encounter for screening for other suspected endocrine disorder; Z13.228 Encounter for screening for other metabolic disorders
CPT/HCPCS: 36415; 80053; 80061; 82306; 82607; 82746; 84443; 85025

== ENCOUNTER 2024-08-13 13:07 | Outpatient (AMB) | payer OTHER, SELFPAY ==
--- NOTE | 2024-08-13 13:11 | MHC.OFFVIS ---
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 Allergies paroxetine [From Paxil] Allergy (Severe, Verified 07/31/24 11:09) bleeding internally kiwi Allergy (Intermediate, Verified 07/31/24 11:09) burn latex Allergy (Intermediate, Verified 07/31/24 11:09) Burn Penicillins Allergy (Intermediate, Verified 07/31/24 11:09) Rash prochlorperazine [From Compazine] Allergy (Intermediate, Verified 07/31/24 11:09) Muscle Pain banana Adverse Reaction (Severe, Verified 07/31/24 11:09) mouth burn B12 Adverse Reaction (Severe, Uncoded 07/29/24 14:37) jaundice Medication List - Last Reconciled 08/13/24 by Darius Larson MD atogepant (Qulipta) 60 mg PO DAILY 30 days dextroamphetamine-amphetamine 20 mg (Adderall) 20 mg PO DAILY dextroamphetamine-amphetamine 30 mg ER (Adderall XR) 30 mg PO DAILY ondansetron HCl 4 mg PO Q6H Oxygen Home Use Start home O2 at 15-25 L/min via non-rebreather facemask x's 15-20 minutes at onset of cluster headache attack, MR as needed (max 4 hrs per day). Patient will require both M tanks and E tanks. sumatriptan succinate 100 mg PO DAILY PRN HPI Comments Details: Brianna is here for consultation regarding chest pain and question of abnormal stress test. Patient herself does not have any known cardiac issues. No known coronary disease myocardial infarction or cardiomyopathy. She is going through a separation and hence under lot of stress. She is also on medications for ADHD. She has had chest pains at different times, with and without physical exertion. And she has also had other symptoms like shakiness, sweating. She has noticed random episodes where the heart rate goes up. She has longstanding migraine headaches and they have been resistant to several different types of treatment according to her. She underwent stress testing recently. In the perfusion component, there is description of LAD ischemia and hence she has been referred here. [facility] Medical History (Updated 08/13/24 @ 15:45 by Darius Larson MD) Migraine Surgical History History of dental surgery Family History Mother Colon cancer metastasized to liver Paternal Grandmother Ovarian cancer Social History Housing: House Alcohol intake: current Alcohol intake frequency: holidays/special occasions only Patient Tobacco Use Status: Never used Tobacco e-Cigarette/Vaping Use: Former Use Second Hand Smoke Exposure: No service: No Current occupational status: unemployed Cognitive needs: No Hearing needs: No Vision needs: No Female Reproductive History Menstrual Age of Menarche: 12 Review of Systems Const Reports headache(s) and Denies weakness ENT Denies dizziness and Reports headache(s) Card Reports chest pain, Denies chest pain with activity, Denies syncope, Denies rapid heart rate, Denies pedal edema, Denies edema, Denies leg edema, Denies lightheadedness, Reports palpitations, Reports dyspnea, Denies dyspnea on exertion and Denies orthopnea Resp Denies cough, Reports dyspnea and Denies dyspnea on exertion GI Denies hematochezia and Denies change in stool character Musc Denies abnormal gait, Denies muscle cramps, Denies muscle weakness, Denies numbness, Denies radiating pain into limb and Denies tingling Neuro Denies abnormal gait, Denies dizziness, Denies syncope, Reports headache(s), Denies numbness, Denies tingling and Denies weakness Endo Reports palpitations Physical Exam Vital Signs: Last Vital Signs Pulse 105 H 08/13/24 13:13 BP 128/68 08/13/24 13:13 BMI result Body Mass Index 25.1 Const General: comfortable and no acute distress Orientation/consciousness: patient oriented x3 HEENT Other: Unremarkable Head: Yes normal to inspection Neck Neck: Yes normal visual inspection Chest Chest palpation & inspection: normal inspection of the chest Resp Auscultation: clear to auscultation bilaterally Cardio Palpation: normal PMI Heart sounds: S1 normal heart sound present, S2 normal heart sound present, no gallops, no murmurs and no rubs GI Palpation (GI): Soft to palpation Back/Spine/Pelvis Other: unremarkable Skin General skin exam: no rashes or lesions noted Neuro General: patient oriented x3 Extrem General: Yes normal to inspection Psych Mental Status: mental status grossly normal Office Procedures EKG Details: EKG with sinus tachycardia 105/Min; right atrial enlargement; no ischemic changes; borderline prolongation of MD; [place]. [id number]-[id number], Complete Assessment & Plan Assessment & Plan (1) Chest pain: Code(s): R07.9 - Chest pain, unspecified Category: Medical (2) Abnormal stress test: Code(s): R94.39 - Abnormal result of other cardiovascular function study Category: Medical (3) Sinus tachycardia: Code(s): R00.0 - Tachycardia, unspecified Category: Medical Plan Cardiac studies reviewed. Echocardiogram with LVEF of 60%. No wall motion abnormalities. No significant valvular findings and otherwise unremarkable. In the ETT, patient already had chest pain at baseline but increased with exercise. No EKG evidence of ischemia. Repeated with pharmacological stress perfusion imaging study and that has been reported as LAD territory ischemia. Overall, considering her young age and lack of any major risk factors, less likely to have true ischemia and could be just artifactual. Also reviewed the images. For definitive diagnosis, recommend a coronary CTA. We discussed about this today and she is agreeable. If indeed this comes back normal, then reassurance only. With regard to palpitations, probable sinus tachycardia, could be related to some combination of pain from migraine, Adderall and possible deconditioning. No specific management for that. Per neurology notes, she has tried propranolol, metoprolol, verapamil from migraines standpoint but did not help. If the palpitations are truly bothersome, consider using them for heart rate control but she would rather not want anymore medications. Orders: Orders Basic Metabolic Panel Today R94.39 - Abnormal result of other cardiovascular function study CT Cardiac Coronary Angio Today I25.10 - Atherosclerotic heart disease of [place] coronary artery without angina pectoris, R94.39 - Abnormal result of other cardiovascular function study Coding Level of Care Code New Pt Level 4 (32418) Complex EM visit Add On G2211 Diagnoses Chest pain R07.9 Abnormal stress test R94.39 Sinus tachycardia R00.0 CPT Codes EKG - CPT: 51417-[id number], Complete ([id number])
[2024-08-13 13:13] VITALS: BP 128/68; PULSE 105; BMI 25.1
--- OUTSIDE RECORDS SUMMARY | 2024-08-13 14:45 | XMS_ITS | Continuity of Care Document ---
Author Organization [facility] Address [address] [place] [address] Phone Care Team Providers Care Metalsmith Name Role Phone Cl Robbins OD Unavailable Unavailable Advance Directives Directive Yes / No Effective Date File Name No Information Encounters Encounter Description Practice Location Reason(s) For Visit Diagnoses Date Provider Providers Copied on Encounter [facility], [address], [place], [id number], [place] tel:[phone] [facility] [address] No Information [facility]. [address] [place] [address], [id number], [place]. tel:[phone] Family History Family Member Type Diagnosis Age [...]
== END 2024-08-13 14:00 | disposition home or self-care (01) ==
LOC: HO.HCS 13:08
PROVIDERS: Visit Provider Internal Medicine
DX: R07.9 Chest pain, unspecified (principal); R94.39 Abnormal result of other cardiovascular function study; R00.0 Tachycardia, unspecified
CPT/HCPCS: 93010; 99204; G2211

== ENCOUNTER → 2024-08-13 13:07 | Outpatient (BNVA) | payer OTHER, SELFPAY | PROVIDERS: Visit Provider Internal Medicine | DX: R07.9 Chest pain, unspecified (principal); R00.0 Tachycardia, unspecified; I25.10 Atherosclerotic heart disease of native coronary artery without angina pectoris; R94.39 Abnormal result of other cardiovascular function study; I44.0 Atrioventricular block, first degree | CPT/HCPCS: 93005; 99202 ==

== ENCOUNTER → 2024-08-23 14:36 | Outpatient (BNV) | payer OTHER, SELFPAY | PROVIDERS: Visit Provider Radiology Diagnostic Radiology | DX: R51.9 Headache, unspecified (principal); I67.6 Nonpyogenic thrombosis of intracranial venous system | CPT/HCPCS: 70544; 70546; 70553 ==

== ENCOUNTER 2024-08-23 14:41 | Outpatient (REF) | payer OTHER, SELFPAY ==
--- NOTE | ~2024-08-23 | MR_ITS ---
EXAMINATION: MR VENOGRAPHY BRAIN WITHOUT AND WITH CONTRAST CLINICAL INFORMATION: Headaches COMPARISON: None available. TECHNIQUE: 2-D [id number] and postcontrast imaging of the major cortical and dural venous sinuses was performed. 10 mL Gadavist IV contrast administered. FINDINGS: The central and peripheral major cortical and dural venous sinuses are patent bilaterally. There is no evidence of thrombosis or occlusion. There is a right dominant posterior fossa drainage system noted with a mildly diminutive left transverse sinus. MR/MR venography head wo/w con IMPRESSION: Patent major cortical and dural venous sinuses. Electronically signed by: Mathew Cespedes MD 08/25/2024 12:39 PM EDT
--- NOTE | ~2024-08-23 | MR_ITS ---
EXAMINATION: MR BRAIN WITHOUT AND WITH CONTRAST CLINICAL INFORMATION: Headaches, unspecified. Please include PAVAN score COMPARISON: None available. TECHNIQUE: Multiplanar, multisequence MRI of the brain was obtained before and after the intravenous administration of 10 mL Gadavist. Examination performed on a 1.5 Nata high-field unit. FINDINGS: There is no diffusion restriction. There is no intracranial hemorrhage, acute infarction, mass effect, or edema. Ventricles, sulci, and cisterns are normal in size and configuration for patient age. No shift of midline. No abnormal hemosiderin deposition is identified. There are a few scattered punctate and minimally confluent foci of white matter T2 hyperintensity in the periventricular, subcortical, and hemispheric deep white matter, nonspecific. Midline structures appear normally formed. The pituitary gland appears normal. Posterior fossa structures appear normal. Cerebellar tonsils are appropriately located. Major flow voids are preserved within the skull base. After contrast, there is no abnormal intra or extra-axial contrast enhancement. There is a small DVA in the left precentral gyrus. Prepontine cistern measurement = 5 mm. Minimal pontine distance = 9 mm. Suprasellar cistern measurement = 5 mm. PAVAN Score = 0. The globes and orbital contents demonstrate no abnormalities. There is a small mucous retention cyst in the dependent right maxillary antrum. Paranasal sinuses are otherwise clear bilaterally. Nasal septum is midline without spur. The mastoids and tympanic cavities are normally aerated. Extracranial soft tissues demonstrate no abnormalities. No suspicious bone marrow changes are evident. Atlantoaxial joint demonstrates mild degenerative changes. MR/MR head/brain wo/w con IMPRESSION: 1. No evidence of intracranial hemorrhage, acute infarction, mass effect, or edema. No abnormal intra or extra-axial enhancement. 2. No significant white matter signal abnormalities. 3. The PAVAN score = 0. This indicates a low probability of spontaneous intracranial hypotension. Electronically signed by: Mathew Cespedes MD 08/25/2024 12:00 PM EDT
--- NOTE | ~2024-08-23 | MR_ITS ---
EXAMINATION: MR ANGIOGRAPHY BRAIN WITHOUT CONTRAST CLINICAL INFORMATION: Headaches. COMPARISON: None available. TECHNIQUE: 3-D [id number]-[id number] imaging of the major intracranial arterial vasculature. FINDINGS: There is normal flow related enhancement in the anterior, and posterior circulation. There is no aneurysm, occlusion, significant arterial stenosis, or flow gap identified. The left posterior communicating artery is diminutive but present. The right is not well seen. Anterior communicating artery is normal. Vertebral arteries are codominant. MR/MR angio head wo con IMPRESSION: Normal MRA examination of the brain. Electronically signed by: Mathew Cespedes MD 08/25/2024 12:12 PM EDT
[2024-08-23] MEDS: gadobutroL 10 ML VIAL IVPUSH (16:30)
== END 2024-08-23 14:42 | disposition home or self-care (01) ==
LOC: HO.MRI 14:41
PROVIDERS: Visit Provider Nurse Practitioner Family
DX: R51.9 Headache, unspecified (principal); H54.61 Unqualified visual loss, right eye, normal vision left eye; H02.409 Unspecified ptosis of unspecified eyelid; I67.1 Cerebral aneurysm, nonruptured
CPT/HCPCS: 70544; 70546; 70553; A9585

== ENCOUNTER 2024-09-17 10:14 | Outpatient (REF) | payer OTHER, SELFPAY ==
--- OUTSIDE RECORDS SUMMARY | 2024-09-17 10:46 | XMS_ITS | Clinical Summary ---
Author Organization [facility] Health Address [address] [place] [address] Care Team Providers Care Military Pay Technician Name Role Phone Unavailable Primary Care Provider [...] 1985 Dental X-Ray: Panoramic 11/01/2024 10/31/2021, 08/24 Procedures Procedure Name Priority Date/Time Associated Diagnosis Comments PANORAMIC RADIOGRAPHIC IMAGE Routine 08/24/2021 9:00 AM MST from Last 3 Months or Most Recently Relevant to Health Maintenance Insurance [employer] HMO
[2024-09-17 10:57] LABS: INTERNATIONAL NORM RATIO 0.9 (0.9-1.1); Prothrombin Time 10.8 SEC (10.9-12.4)
[2024-09-17 11:03] LABS: Anion Gap 14 (12-20); Blood Urea Nitrogen 27 mg/dL (9-16); Calcium 9.5 mg/dL (8.4-10.2); Carbon Dioxide 20 mmol/L (22-29); Chloride 111 mmol/L (96-108); Estimated Glomerular Filt Rate > 60; Iron 150 mcg/dL (30-160); Percent Iron Saturation 52 % (15-50); Potassium 4.1 mmol/L (3.3-5.1); Sodium 141 mmol/L (135-145); Total Iron Binding Capacity 287 mcg/dL (228-428); Unsaturated Iron Binding 137 ug/dL
[2024-09-17 11:05] LABS: Partial Thromboplastin Time 28.7 SEC (26.0-36.8)
== END 2024-09-17 10:15 | disposition home or self-care (01) ==
LOC: HO.LAB 10:14
DX: R23.3 Spontaneous ecchymoses (principal); R94.39 Abnormal result of other cardiovascular function study
CPT/HCPCS: 36415; 80048; 83540; 85610; 85611; 85730; 85732

== ENCOUNTER 2024-10-16 13:21 | Outpatient (REF) | payer OTHER, SELFPAY ==
--- NOTE | ~2024-10-16 | MM_ITS ---
EXAMINATION: MM DIAGNOSTIC DIGITAL BREAST TOMOSYNTHESIS, BILATERAL Limited right breast ultrasound. CLINICAL INFORMATION: 6 month follow-up for bilateral focal asymmetries and hypoechoic oval solid mass versus complicated cyst in the right breast on ultrasound and 9:00 COMPARISON: Mammography: Comparison is made with relevant prior exams. TECHNIQUE: Digital breast mammography with tomosynthesis is performed in both the craniocaudal and mediolateral oblique views along with computer-aided detection (CAD). FINDINGS: There are scattered areas of fibroglandular density (ACR BI-RADS breast composition Category b). Left: Focal asymmetry in the upper outer breast is not significantly changed/ less conspicuous compared with priors. No prior sonographic correlate was seen. No suspicious calcifications or other abnormal findings. Right: Focal asymmetry in the lower central lower inner breast is not significantly changed from prior's to slightly less conspicuous. No prior sonographic correlate was seen. Focal asymmetry in the upper outer breast posterior depth with sonographic correlate is not significantly changed from prior. Targeted color Doppler ultrasound scanning at 9:00 7 cm from the nipple demonstrates again seen a hypoechoic oval circumscribed solid mass versus complicated cyst measuring 7 x 7 x 6 mm overall not significantly changed from prior ultrasound. Results are provided to the patient at time of visit by the technologist. MM/MM tomosynthesis diagnostic BI IMPRESSION: Bilateral focal asymmetries are not significantly changed from prior's. Recommend 6 month follow-up bilateral mammogram for further evaluation of stability. Hypoechoic oval circumscribed solid mass versus complicated cyst in the right breast at 9:00 7 cm from the nipple. Recommend 6 month follow-up ultrasound for further evaluation of stability. ASSESSMENT: BI-RADS BI-RADS 3 - Probably benign finding(s) - 6 month follow-up suggested RECOMMENDATION: 6 Month F/U This patient's information was entered into a reminder system with a target due date for their next mammogram. Electronically signed by: Mala East DO 10/16/2024 02:11 PM EDT
--- OUTSIDE RECORDS SUMMARY | 2024-10-16 14:13 | XMS_ITS | Referral Summary ---
Author Organization [facility] Address [address] [place] [address] Phone Care Team Providers Care Inspector Repairer Sandstone Name Role Phone Unavailable Primary Care Provider Unavailabl e Allergies Active Allergy Reactions Criticality Noted Date Comments Banana Unknown 05/13/2024 Egg Derived Nausea And Vomiting High 06/08/2014 Fluoxetine Other (See Comments) 12/07/2023 Capillary leakage and internal bleeding Latex, Natural Rubber Other (See Comments),Rash High 06/08/2014 Burning sensation of skin Paroxetine Other (See Comments) High 06/08/2014 Capillary leakage and internal bleeding Other reaction(s): Other (See Comments) Capillary leakage and internal bleeding Penicillins Rash High 06/08/2014 Other reaction(s): Rash Prochlorperazine Other (See Comments) High 5 Muscle spasms and seizures Other reaction(s): Other (See Comments) Muscle spasms and seizures Medications clindamycin (CLEOCIN) 300 MG capsule TAKE 1 CAPSULE BY MOUTH EVERY 6 HOURS UNTIL ALL TAKEN 5 Active dextroamphetami ne-amphetamine 20 mg Tab TAKE 20MG BY MOUTH AT 3PM IN THE AFTERNOON 4 Active diclofenac (VOLTAREN) 50 MG EC tablet Take 50 mg by mouth. 4 Active DULoxetine (CYMBALTA) [address] capsule Take 20 mg by mouth daily. 4 Active methocarbamoL (ROBAXIN) 500 MG tablet Take 1,000 mg by mouth. 4 Active SUMAtriptan (IMITREX) 100 MG tablet TAKE 1 TABLET BY MOUTH DAILY NEEDED FOR MIGRAINE Active tiZANidine (ZANAFLEX) 2 MG tablet Take 2 mg by mouth. 3 Active pregabalin (LYRICA) 25 MG capsule Take 25 mg by mouth. 3 Active Active Problems Problem Noted Date Diagnosed Date Retained dental root 05/13/2024 ADHD (attention deficit hyperactivity disorder) 02/22/2021 Overview (05/13/2024): Followed at[facility]by [facility] (refer to Consultation note dated 06/12/2014 in the Media Tab). Medications as of 06/30/2014 (see notification in Media Tab): Mirtazapine 15 mg; Adderall XR 30 mg group home (current) use of opiate analgesic 01/04 Anxiety state 06/20/2014 Overview (05/13/2024): Followed at[facility]by [facility] (refer to Consultation note dated 06/12/2014 in the Media Tab). ICD-10 Update Social History Tobacco Use Types Packs/Day Years Used Date Smoking Tobacco: Never Passive Smoke Exposure: Never Smokeless Tobacco: Never Tobacco Cessation:Counseling Given: Not Answered Alcohol Use Standard Drinks/Week Comments Never 0 (1 standard drink = 0.6 oz pur e alcohol) Comments Unknown Sex and Gender Information Value Date Recorded Sex Assigned at Female 05/13/2024 9:00 AM EDT Legal Sex Female 7:06 AM EDT Gender Identity Female 05/13/2024 9:00 AM EDT Sexual Orientation Not on file Last Filed Vital Signs Vital Sign Reading Time Taken Comments Blood Pressure 130/91 05/13/2024 1:32 PM EDT Pulse 106 05/13/2024 1:32 PM EDT Temperature - - Respiratory Rate - - Oxygen Saturation - - Inhaled Oxygen Concentration - - Weight - - Height - - Body Mass Index - - Plan of Treatment Not on file
--- OUTSIDE RECORDS SUMMARY | 2024-10-16 14:13 | XMS_ITS | Clinical Summary ---
Author Organization [facility] Health Address [address] [place] [address] Care Team Providers Care Nuclear Chemistry Technician Name Role Phone Unavailable Primary Care [...]
== END 2024-10-16 13:22 | disposition home or self-care (01) ==
LOC: HO.MAMMO 13:21
DX: R92.2 Inconclusive mammogram (principal)
CPT/HCPCS: 76642; 77062; 77066

== ENCOUNTER → 2024-10-16 13:30 | Outpatient (BNV) | payer OTHER, SELFPAY | PROVIDERS: Visit Provider Internal Medicine | DX: R92.8 Other abnormal and inconclusive findings on diagnostic imaging of breast (principal) | CPT/HCPCS: 76642; 77062; 77066 ==

== ENCOUNTER 2024-10-29 14:21 | Outpatient (AMB) | payer OTHER, SELFPAY ==
[2024-10-29 14:31] VITALS: BP 132/88; PULSE 94; O2SAT 98; BMI 25.4
--- NOTE | 2024-10-29 14:31 | A.OFFPC_ITS ---
Vital Signs 10/29/24 14:31 Height 6 ft Weight 187 lb BMI 25.4 BP 132/88 Blood Pressure Location Lt brachial Position Sitting Pulse 94 Pulse Oximetry (%) 98 Oxygen Delivery Method Room Air Intake Visit Reasons: f/u medication Orthotist Prosthetist Required: No Accompanied by: Self / Same As Patient Allergies paroxetine (From Paxil) Allergy (Severe, Verified 10/29/24 14:32) bleeding internally kiwi Allergy (Intermediate, Verified 10/29/24 14:32) burn latex Allergy (Intermediate, Verified 10/29/24 14:32) Burn Penicillins Allergy (Intermediate, Verified 10/29/24 14:32) Rash prochlorperazine (From Compazine) Allergy (Intermediate, Verified 10/29/24 14:32) Muscle Pain banana Adverse Reaction (Severe, Verified 10/29/24 14:32) mouth burn B12 Adverse Reaction (Severe, Uncoded 07/29/24 14:37) jaundice Tobacco use date assessed: 07/29/24 Dental Screening Dental Screen Date: 10/29/24 Did you have a dental visit in the last 12 months?: No Did you have a dental problem in the last 6 months where you did not have access to dental care?: No Was dental information given to patient?: No HPI f/u medication HPI Details 39-year-old female with past medical his tory of ADHD, migraine, Gilbert syndrome, depression last seen 07/2024 coming in for follow up. In review of the notes, patient had mammogram completed 10/27/2024 that showed no significant change since last mammogram recommended six-month follow up. She was seen by Cardiology 08/13/2024 after an abnormal stress test recommended coronary CTA. Seen by neurology 07/31/2024 recommending brain MRA, MRV and MRI and started on Qulipta at bedtime. She currently experiences stress induced cardiac symptoms including severe chest pain radiating to her back. She is currently being worked up by Cardiology and has a CTA scheduled for tomorrow. She was advised by Cardiology to avoid strenuous activities and avoid stress inducing activities which has postponed counseling for her. She is currently using oxygen therapy for temporary relief of migraines is awaiting approval for Qulipta. She has no other concerns today. [facility] Medical History Migraine Surgical History History of dental surgery Family History Mother Colon cancer metastasized to liver Paternal Grandmother Ovarian cancer Father Prostate cancer Social History Housing: House Alcohol intake: current Alcohol intake frequency: holidays/special occasions only Patient Tobacco Use Status: Never used Tobacco e-Cigarette/Vaping Use: Former Use Second Hand Smoke Exposure: No service: No Current occupational status: unemployed Cognitive needs: No Hearing needs: No Vision needs: No Female Reproductive History Menstrual Age of Menarche: 12 Questionnaire PHQ-9 Over the last 2 weeks, how often have you been bothered by any of the following problems? 1. Little interest or pleasure in doing things: several days 2. Feeling down, depressed, or hopeless: several days 3. Trouble falling or staying asleep, or sleeping too much: several days 4. Feeling tired or having little energy: several days 5. Poor appetite or overeating: several days 6. Feeling bad about yourself - or that you are a failure or have let yourself or your family down: several days 7. Trouble concentrating on things, such as reading the newspaper or watching television: several days 8. Moving or speaking so slowly that other people could have noticed. Or the opposite - being so fidgety or restless that you have been moving around a lot more than usual: several days 9. Thoughts that you would be better off or of hurting yourself in some way: not at all Total score: 8 Depression Screening Interpretation: Positive Depression Screening Follow-up: Existing condition Depression Screening Done: Yes Source: Developed by Drs. Frandy Portillo, Rachel Sr, Mike Vu and colleagues, with an educational chris from [employer]. Thrive Questionnaire Date Thrive assessed: 10/29/24 I am a: Patient What is your living situation today?: I have a steady place to live Within the past 12 months, did the food you bought not last and you didn't have the money to get more?: I choose not to answer this question Within the past 12 months, did you worry whether your food would run out before you got money to buy more?: Never true Do you have trouble paying for medicines?: I choose not to answer this question Do you have trouble getting transportation to medical appointments?: No Do you have trouble paying your heating and electricity bill?: No Do you have trouble taking care of your child, family member or friend?: No Do you have trouble with day-to-day activities such as bathing, preparing meals, shopping, managing finances, etc.?: No Are you currently unemployed and looking for a job?: I choose not to answer this question Are you interested in more education?: I choose not to answer this question Please select the resources that you would like help with: None Currently or been in a relationship where the following occur: No concerns reported THRIVE Score: 0 AUDIT C Alcohol Use Questionnaire (AUDIT-C) 1. How often do you have a drink containing alcohol?: Monthly or less 2. How many drinks containing alcohol do you have on a typical day when you are drinking?: 1 or 2 3. How often do you have six or more drinks on one occasion?: Never Total Score: 1 ALLISON-7 AMB Questionnaire ALLISON-7 Date ALLISON - 7 assessed: 10/29/24 Feeling nervous, anxious, or on edge: 0 = Not at all Not being able to stop or control worryin = Several days Worrying too much about different things: 1 = Several days Trouble relaxin = Not at all Being so restless that it is hard to sit still: 0 = Not at all Becoming easily annoyed or irritable: 0 = Not at all Feeling afraid as if something awful might happen: 2 = More than half the days Total ALLISON-7 score (0-4 normal; 5-9 mild; 10-14 moderate; 15-21 severe): 4 Source: Developed by Drs. Frandy Portillo, Rachel Sr, Mike Vu and colleagues, with an educational chris from [employer]. ALLISON-7 Assessment Billing ALLISON-7 Assessment Tool: ALLISON-7 Assessment 37710 Review of Systems Const Denies chills, Denies fatigue, Denies fever(s) and Reports headache(s) Eyes Reports no additional complaints ENT Reports headache(s) Card Denies chest pain, Reports chest pain with activity, Denies syncope, Denies palpitations and Denies dyspnea Resp Denies dyspnea GI Denies abdominal pain, Denies nausea and Denies vomiting Reports no additional complaints Musc Reports no additional complaints Neuro Denies syncope and Reports headache(s) Endo Denies fatigue and Denies palpitations Physical exam (Primary Care) Vital Signs: Last Vital Signs Pulse 94 10/29/24 14:31 BP 132/88 10/29/24 14:31 Pulse Ox 98 10/29/24 14:31 Oxygen Delivery Method Room Air 10/29/24 14:31 BMI result Body Mass Index 25.4 Tobacco/Smoking Status: Tobacco use Status Tobacco use date assessed 07/29/24 10/29/24 14:44 Patient Tobacco Use Status Never used Tobacco 10/29/24 14:44 e-Cigarette/Vaping Use Former Use 10/29/24 14:44 PHQ-9: PHQ-9 Score PHQ-9: Total score 8 10/29/24 15:16 Depression Screening Interpretation: Positive Depression Screening Follow-up: Existing condition Thrive Assessment: Date of Thrive Assessment Date Thrive assessed 10/29/24 10/29/24 14:44 Currently or been in a relationship where the following occur: No concerns reported Const General: cooperative, healthy appearing, comfortable and no acute distress Orientation/consciousness: patient oriented x3 HENMT Head: Yes normocephalic Ears: hearing grossly normal bilaterally General nose exam: Normal external nose present Eyes General: appearance normal, both eyes and all related structures Conjunctivae: conjunctivae normal Neck Neck: Yes full ROM and Yes no lymphadenopathy Resp Effort & Inspection: normal respiratory effort Auscultation: clear to auscultation bilaterally, no crackles, no rales, no rhonchi and no wheezes Cardio Rate: regular rate Rhythm: regular rhythm Skin General skin exam: no rashes or lesions noted Neuro General: patient oriented x3 Gait exam (Neuro): Normal gait present Extrem General: Yes normal to inspection, Yes full ROM and No edema Psych Affect: normal affect Attitude: cooperative Insight: Good insight present (Psych) Judgement: Good judgement present (Psych) Coding Level of Care Code Est Pt Level 3 (56229) Diagnoses Chronic migraine w/o aura w/o status migrainosus, not intractable G43.709 ADHD F90.9 Abnormal stress test R94.39 Additional Codes ALLISON-7 Assessment Billing - ALLISON-7 Assessment Tool: ALLISON-7 Assessment 45040 ([id number]) Assessment & Plan Assessment & Plan (1) Chronic migraine w/o aura w/o status migrainosus, not intractable: Code(s): G43.709 - Chronic migraine without aura, not intractable, without status migrainosus Category: Medical Plan: Patient is to continue to follow with Neurology recently had the Emgality injection which caused excessive bruising for her. She is awaiting approval for Qulipta and we will continue to use sumatriptan as needed at this time. She also completed imaging of the brain this currently awaiting neurology follow up. (2) ADHD: Code(s): F90.9 - Attention-deficit hyperactivity disorder, unspecified type Category: Medical Plan: Continue on Adderall extended release and short-acting patient will need to follow up every 3 months for refill. (3) Abnormal stress test: Code(s): R94.39 - Abnormal result of other cardiovascular function study Category: Medical Plan: She will continue to follow with Cardiology and has a chest CTA scheduled for tomorrow with Cardiology. She has an appointment in November for follow up but she will be contacting Cardiology prior to this appointment for results. Plan I discussed with the patient the importance of avoiding stress and physical exertion due to her current cardiac status. We reviewed the plan for a cardiac CT with contrast to further evaluate her condition. For her migraines, we discussed the use of oxygen therapy and the pending approval for Qulipta. I emphasized the need for follow-up on her stable breast mass with a mammogram in six months. This note was constructed using voice recognition software. While every effort has been made to ensure accuracy and loop tacker, still areas may have been included sometimes these areas may affect the content or meeting of the given symptoms. Total time spent caring for the patient today was 20 minutes. This includes time spent before the visit reviewing the chart, time spent during the visit, and time spent after the visit and documentation. Patient was informed and verbally consented to the use of an ambient scribe for clinic note documentation during this visit.
--- OUTSIDE RECORDS SUMMARY | 2024-10-29 15:24 | XMS_ITS | Clinical Summary ---
Author Organization [facility] Address [address] [place] [address] Phone Care Team Providers Care Special Trackwork Blacksmith Name Role Phone Unavailable Primary Care Provider [...] Mirtazapine 15 mg; Adderall XR 30 mg care home (current) use of opiate analgesic 01/04 [...] Mass Index - - Plan of Treatment Health Maintenance Due Date Last Done Comments Diabetes Screening 1985 HIV Lifetime Screening 1985 Hepatitis B Lifetime Screening 1985 Hepatitis C Antibody Lifetim e Screening 1985 THRIVE SCREENING 1985 Oral Health Screen 1985 HEIP Disability Screen 1990 BEHAVIORAL HEALTH SCREEN 1997 Psych Substance Use Screen 1997 Relationship Safety Screening 2000 DTAP/TDAP VACCINE (1 - Tdap) 2004 Cervical Cancer Screening 2006 Colposcopy 2006 PAP SMEAR 2006 Pap + HPV 2006 HPV VACCINES (1 - 3-dose SCD M series) 2012 COVID-19 Vaccine (2023-2 5 season) 2023 INFLUENZA VACCINE (#1) 2024 Zoster Vaccine (1 of 2) 2035 IPV VACCINES Aged Out No longer eligi ble based on patient's age to complete this topic MENINGOCOCCAL B Aged Out No longer el igible based on patient's age to complete this topic Pneumonia Vaccine 0-49 Years Aged Out No longer eligible based on patient's age to complete this topic ROTAVIRUS VACCINES Aged Out No longer eligible based on patient's age to complete this topic
--- OUTSIDE RECORDS SUMMARY | 2024-10-29 15:24 | XMS_ITS | Encounter Summary ---
Author Organization [facility] Health Address [address] [place] [address] Care Team Providers Care Marina Porter Name Role Phone Unavailable Primary Care Provider Unavailabl e Prior Encounters Date Type Department Care Team Description 09/06/2021 10:00 AM [facility] Office Visit [facility] [address], [address] [place] [address] Rachell Quesada DMD 08/24/2021 9:00 AM [facility] Office Visit [facility] [address], [facility] [address] [place] [address] Rachell Quesada, DMD Plan of Treatment Not on file Procedures Procedure Name Priority Date/Time Associated Diagnosis Comments CBCT - PROBLEM FOCUSED Routine 10:00 AM [facility] RE-EVALUATION POST-OPERATIVE OFFICE VISIT Routine 09/06/2021 10:00 AM [facility] 25 CERECFIRED CROWN ANT Routine 08/25/19 9:00 AM [facility] 25 CORE BUILDUP, INCLUDING ANY PINS WHEN REQUIRED Routine 08/24/2021 9:00 AM [facility] 25 ENDODONTIC THERAPY, ANTERIOR TOOTH (EXCLUDING FINAL SABIANISM) Routine 08/24/2021 9:00 AM [facility] PANORAMIC RADIOGRAPHIC IMAGE Routine 08/24/2021 9:00 AM [facility] ADDITIONAL X-RAY Routine 08/24/2021 9:00 AM [facility] BITEWING - SINGLE RADIOGRAPHIC IMAGE Routine 08/24/2021 9:00 AM [facility] SINGLE X-RAY Routine 08/24/2021 9:00 AM [facility] LIMITED ORAL EVALUATION - PROBLEM FOCUSED Routine 08/24/2021 9:00 AM [facility] Visit Diagnoses Not on file Insurance [employer] HMO
--- OUTSIDE RECORDS SUMMARY | 2024-10-29 15:24 | XMS_ITS | Clinical Summary ---
Author Organization [facility] Health Address [address] [place] [address] Care Team Providers Care Supervisor Feed House Name Role Phone Unavailable Primary Care Provider [...]
--- OUTSIDE RECORDS SUMMARY | 2024-10-29 15:24 | XMS_ITS | Referral Summary ---
Author Organization [facility] Address [address] [place] [address] Phone Care Team Providers Care Mustanger Name Role Phone Unavailable Primary Care Provider [...] Mirtazapine 15 mg; Adderall XR 30 mg [facility] (current) use of opiate analgesic 01/04 Anxiety [...]
== END 2024-10-29 15:19 | disposition home or self-care (01) ==
LOC: HO.HMCH 14:22
DX: G43.709 Chronic migraine without aura, not intractable, without status migrainosus (principal); F90.9 Attention-deficit hyperactivity disorder, unspecified type; R94.39 Abnormal result of other cardiovascular function study

== ENCOUNTER → 2024-10-29 14:21 | Outpatient (BNVA) | payer OTHER, SELFPAY | DX: E80.4 Gilbert syndrome (principal); F90.9 Attention-deficit hyperactivity disorder, unspecified type; F32.A Depression, unspecified; R07.9 Chest pain, unspecified; G43.709 Chronic migraine without aura, not intractable, without status migrainosus; R94.39 Abnormal result of other cardiovascular function study | CPT/HCPCS: 96127; 99212 ==

== ENCOUNTER 2024-10-31 07:34 | Outpatient (AMB) | payer OTHER, SELFPAY ==
--- NOTE | 2024-10-31 07:28 | A.OFFVIS_ITS ---
Intake Visit Reasons: 3m OK per [facility] Intake Note: Follow up care - PA for Qulipta. 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 Accompanied by: Self / Same As Patient Allergies paroxetine (From Paxil) Allergy (Severe, Verified 10/31/24 07:29) bleeding internally kiwi Allergy (Intermediate, Verified 10/31/24 07:29) burn latex Allergy (Intermediate, Verified 10/31/24 07:29) Burn Penicillins Allergy (Intermediate, Verified 10/31/24 07:29) Rash prochlorperazine (From Compazine) Allergy (Intermediate, Verified 10/31/24 07:29) Muscle Pain banana Adverse Reaction (Severe, Verified 10/31/24 07:29) mouth burn B12 Adverse Reaction (Severe, Uncoded 07/29/24 14:37) jaundice Medication List - Last Reconciled 10/31/24 by VIRGILIO Nguyen atogepant (Qulipta) 60 mg PO DAILY 30 days dextroamphetamine-amphetamine 20 mg (Adderall) 20 mg PO DAILY dextroamphetamine-amphetamine 30 mg ER (Adderall XR) 30 mg PO DAILY ondansetron HCl 4 mg PO Q6H Oxygen Home Use Start home O2 at 15-25 L/min via non-rebreather facemask x's 15- 20 minutes at onset of cluster headache attack, MR as needed (max 4 hrs per day). Patient will require both M tanks and E tanks. sumatriptan succinate 100 mg PO DAILY PRN HPI Comments Details: Right-handed 39-yr-old female presents for follow-up of chronic migraine and cluster headache. 08/23/24, MR/MR venography head wo/w con Patent major cortical and dural venous sinuses. 08/23/24, MR/MR angio head wo con Normal MRA examination of the brain. MR/MR head/brain wo/w con 1. No evidence of intracranial hemorrhage, acute infarction, mass effect, or edema. No abnormal intra or extra-axial enhancement. 2. No significant white matter signal abnormalities. 3. The PAVAN score = 0. This indicates a low probability of spontaneous intracranial hypotension. Patient also reports she underwent chest CT yesterday- as cardiology is working her up for broken heart syndrome. Continues to wake up every morning with a severe headache, she has both daily migraine and cluster headache attacks. Has started O2 via nasal canula, which helps take the edge off while her medications are kicking in. She is not sure of the O2 flow rate or how to change the flow rate, but notes the flow is very soft. Since the last visit, atogepant was denied by insurance, so patient was advised to try Emgality instead. She started emgality and took the loading dose, but had bothersome injection site bruising and injection site discomfort. She did notice a slight decrease in headache intensity. 07/31/2024, initial HPI: Right-handed 39-yr-old female presents for new pt evaluation of headache disorder, who [place] [facility] [place]. Pt reports she has had migraine since age 13-15 yrs old. Pt states she was dx'd w/ chronic migraine and cluster headache. She reports she has had a constant headache of varying intensity for > 10 yrs, has had maybe 12 headache free days in the last 10 yrs. states that over the last 20+ years, she has seen many neurologists, including in [place], however they have never been able to find a consistently effective treatment plan for her migraine and cluster headache. she last saw neurology > 5-6 years ago. While in [place], she was seen pain management/headache specialist at [facility] [place]. Her migraine and cluster headache were treated with scheduled [place], daily sumatripta/Excedrin, and occipital trigger point injections ( Corticosteroid / nerve block ). However, she has stopped the [place] and recently stopped all of her other medications except for her Adderall and Sumatriptan and Excedrin. She did start [place] [facility] [place] moving back to [place], and did a bilateral Sphenopalatine nerve block procedure, however it was ineffective and she did not tolerate it well. They had also discussed trying and occipital peripheral nerve stimulator for occipital neuralgia symptoms of chronic migraine and cervical spondylosis- which patient was advised to follow-up with the office if she would like to pursue this. Note, she has never tried any CGRP antagonist therapy or O2 therapy. Patient reports she is originally from [place], however moved to [place] approximately 12 years, and recently moved back here about 6 months ago- leaving her and family they are behind- in order to focus on her health and well-being. PMH and ROS are notable for:? General: fatigue. Vision: h/o Lasik procedure- more recently noticed decreased right eye vision- had neuro-ophthalmology eval, and was reassured. Childhood: prone to vomiting after meals, isidoro in the am. Prone to motion sickness. denies infantile colic. 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 Notes general high pain tolerance. Musculoskeletal disorders or injury: Endorses horrible posture , has not been as mobile d/t the headache in the last 2 yrs. states was very flexible when younger, was able to touch the floor with her hands flat during toe-touch, and bring her back of her foot to the back of her head- She will concur herself up to a very ball even though she is 6 ft tall History of concussion/head injury: Denies Mood d/o: anxiety and depression- pt feels r/t adjustment to significant life changes, chronic illness. ADD. Respiratory d/o: Denies CV disease: Denies. Had episodes of CP prior to leaving [place]- saw cardiology in [place], and now in [facility]- undergoing cardiac work-up. States workup has been normal so far. Clotting or hematology d/o: Denies Endocrine or metabolic d/o: Denies History of seizure: Denies History of syncope: Denies : Denies GI d/o: Irregular BM, nausea- With headache, some constipation- generally does not have an appetite. taking a shake for breakfast and dinner, trying to add vitamins to help. 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 Family history of migraine or other headache disorder: father- when younger, sister, aunt Lifestyle considerations: Sleep routine: Usual bedtime: 10pm and wake-up time: 9am Sleep difficulties: Endorses: difficulty falling asleep, ruminating thoughts. Bruxism- more so when headache coming on in her sleep- has used a mouth guard and broken some. denies snoring, gasping arousals, apneas. Caffeine use: Rarely takes caffeine. But takes Excedrin daily. Substance use: Tobacco- 1-2 cigarettes per week, prior in [place] she smoked more regularly. Rare alcohol use- triggers a screaming headache. Exercise:?walking, hikes Employment:?unemployed, living with family. 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 Headache questionnaire:? Age/time of onset: [age] years old Preceding causes: none Previous work-up: previous head imaging showed intracranial aneurysm. states of previous EEG many years ago showed possible cerebral dysfunction / swelling. Types of headache disorders: 2- chronic migraine and cluster headache Typical chronic migraine headache characteristics: Prodrome symptoms: unknown Aura: denies Pain intensity: Constant, at least 3-4/10, most mornings 8/10, can be 10/10. Location, quality, characteristics: Wakes up feeling like there is not enough room in her head for her brain to fit. Starts as right or left unilateral pain, but become holocranial. Associated symptoms: unilateral eyelid droop- pt feels she is closing her eye some, photophobia, phonophobia, osmophobia, allodynia, nausea, when more severe vomiting, not right in space dizziness, fatigue, cognitive difficulties, activity intolerance, Postdrome: shadow headache or migraine hangover Triggers: poor fluid intake, hunger, lights, sounds, poor sleep, stress, Menstrual cycle Time of day: builds during sleep Duration and Frequency: constant- w/ fluctuations How does headache impact your life? severely limits activities Typical cluster headache characteristics: Headache: A more severe, unilateral ( right or left ) frontal/occipital swelling/warmth- throbbing pain. Associated symptoms: ipsilateral facial swelling, phonophobia, hyperacusis, nausea vomiting, need to rock her body- but does not want to move her head Time of day: Builds during sleep. Duration: Difficult to tell, due to constant nature of concomitant migraine. Triggers: Alcohol Current acute medication use/interventions: Using sumatriptan 100mg and excedrin daily. Current preventative medication use: essentially using sumatriptan and Excedrin as preventive measure. Current non-pharmacological interventions: Rest, cold application PFSH Medical History Migraine Surgical History History of dental surgery Family History Mother Colon cancer metastasized to liver Paternal Grandmother Ovarian cancer Father Prostate cancer Social History (Reviewed 10/31/24 @ 07:32 by JOSE Mackay Housing: House Alcohol intake: current Alcohol intake frequency: holidays/special occasions only Patient Tobacco Use Status: Never used Tobacco e-Cigarette/Vaping Use: Former Use Second Hand Smoke Exposure: No service: No Current occupational status: unemployed Cognitive needs: No Hearing needs: No Vision needs: No Female Reproductive History Menstrual Age of Menarche: 12 Physical Exam Const Orientation/consciousness: patient oriented x3 Resp Effort & Inspection: normal respiratory effort and able to speak in complete sentences Neuro General: patient oriented x3 Cognition (Neuro): normal cognition Gait exam (Neuro): Normal gait present Psych Appearance: grossly normal Mental Status: mental status grossly normal Speech and movement: Normal speech and movement present Affect: normal affect Attitude: cooperative Thought process: Normal thought process present Telehealth Telehealth Telehealth Platform: [employer] Location of provider rendering services: practice address Location of patient: address on file Patient Identification confirmed using: Name, : Yes Telehealth method: video Patient verbally consented to treatment: Yes Patient verbally consented to billing insurance company: Yes Patient informed of any privacy concerns related to visit: Yes Minutes spent on Phone/Video with Pt.: 30 Assessment & Plan Assessment & Plan (1) Cluster headaches: Code(s): G44.009 - Cluster headache syndrome, unspecified, not intractable Category: Medical Qualifiers: Headache chronicity pattern: unspecified pattern Intractability: not intractable Qualified Code(s): G44.009 - Cluster headache syndrome, unspec ified, not intractable (2) Nocturnal headaches: Comment: ? secondary headache, pressure headache process, cervicogenic component. ? component of chronic migraine versus cluster headache. Code(s): R51.9 - Headache, unspecified Category: Medical (3) Chronic migraine without aura: Code(s): G43.709 - Chronic migraine without aura, not intractable, without status migrainosus Category: Medical Qualifiers: Intractability: intractable Status migrainosus presence: with status migrainosus Qualified Code(s): G43.711 - Chronic migraine without aura, intractable, with status migrainosus Plan Reviewed 08/23/2024 Brain MRI with and without contrast (w/ PAVAN scoring), brain MRA without contrast, and brain MRV with and without contrast- unremarkable For overall headache management: * Optimize good self-care, including but not limited to maintaining a healthy diet, adequate fluid intake, adequate sleep, and engaging in regular physical activity. * Track headaches, especially after any treatment regimen changes. Migraine CleverSet is one of many headache tracking apps. * Information shared on non-pharmacological interventions which may help to alleviate headache attack burden. For sound sensitivity: Patent may benefit from trying noise cancellation ear plugs. Neuromodulation devices, which can be used alone or with pharmacological treatment. * Follow-up with cardiology as scheduled * Future considerations: PT for myofascial release and craniosacral therapy, sleep study For acute migraine headache treatment: * Excedrin sparingly as needed Continue Sumatriptan 100mg tab, at onset of headache, may repeat in 2 hours. Max of 2 tabs (200mg) per 24 hours. 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 dexamethasone-ineffective. Diclofenac-ineffective Acute migraine medication contraindications: None at this time Future considerations: trial of gepant For headache prevention medication: Preventative medications should be taken routinely as prescribed for best effect, it may take several weeks for full effect to take effect. Continue OTC magnesium. Discontinue Emgality- not tolerated. Start Atogepant (Qulipta) 60mg daily at bedtime. * Potential side effects include but are not limited to drowsiness, nausea, constipation, weight loss. Previous migraine prevention medication trials: * topiramate- tried for greater than 60 days, ineffective * propranolol and metoprolol- both tried both greater than 60 days, ineffective * verapamil- tried for greater than 60 days, ineffective * amitriptyline and nortriptyline- both tried both greater than 60 days, ineffective * oxcarbazepine- tried for greater than 60 days, ineffective * indomethacin- ineffective, unsure of trial duration or dose * duloxetine, gabapentin, pregabalin- each tried for greater than 60 days, ineffective * oxcarbazepine and Depakote- both tried for greater than 60 days, ineffective * Botox, preempt protocol- multiple sessions, ineffective * cyclobenzaprine- tried for greater than 60 days, ineffective * baclofen- not tolerated, cause confusion * tizanidine 2 mg q.a.m. and 4 mg q.h.s.- had some benefit * norco- scheduled for years, not very effective. * Bilateral Sphenopalatine nerve block- x's 1- ineffective and poorly tolerated * Emgality- not tolerated. Migraine prevention medication contraindications: CGRP monoclonal antibody therapies, as patient desires , and these have long half lives. Depakote, topiramate- as these are teratogenic in a female of child-bearing age. For cluster headache: Continue home O2 at 15-25 L/min via non-rebreather face mask x's 15-20 minutes a t onset of cluster headache attack, May repeat as needed, max of 4 hours per day. Patient will require both M tanks and E tanks. * we will follow-up w/ her home O2 company to request patient education on how to use her oxygen equipment, and to confirm exactly which oxygen equipment and O2 mask the patient has Will follow-up upon review of above and patient to follow-up in clinic in 3-4 months or sooner prn. Medications: Refilled atogepant (Qulipta) 60 mg PO DAILY 30 tabs 6RF 30 days G43.709 - Chronic migraine without aura, not intractable, without status migrainosus Coding Level of Care Code Tele Est Pt Level 4 (94216) Diagnoses Cluster headache, not intractable, unspecified chronicity pattern G44.009 Headache chronicity pattern: unspecified pattern Intractability: not intractable Nocturnal headaches R51.9 Intractable chronic migraine without aura and with status migrainosus G43.711 Intractability: intractable Status migrainosus presence: with status migrainosus
--- OUTSIDE RECORDS SUMMARY | 2024-10-31 07:36 | XMS_ITS | Clinical Summary ---
Author Organization [facility] Address [address] [place] [address] Phone Care Team Providers Care Title Curator Name Role Phone Unavailable Primary Care Provider [...] Mirtazapine 15 mg; Adderall XR 30 mg [facility] (current) use of opiate analgesic 01/04 Anxiety [...]
--- OUTSIDE RECORDS SUMMARY | 2024-10-31 07:36 | XMS_ITS | Referral Summary ---
Author Organization [facility] Address [address] [place] [address] Phone Care Team Providers Care Gas Line Servicer Name Role Phone Unavailable Primary Care Provider [...] Mirtazapine 15 mg; Adderall XR 30 mg [facility] (current) use of opiate analgesic 01/04 Anxiety [...]
--- OUTSIDE RECORDS SUMMARY | 2024-10-31 07:36 | XMS_ITS | Clinical Summary ---
Author Organization [facility] Health Address [address] [place] [address] Care Team Providers Care Dust Handler Name Role Phone Unavailable Primary Care Provider [...]
--- OUTSIDE RECORDS SUMMARY | 2024-10-31 07:36 | XMS_ITS | Encounter Summary ---
Author Organization [facility] Health Address [address] [place] [address] Care Team Providers Care Luggage Maker Name Role Phone Unavailable Primary Care Provider Unavailabl e Prior Encounters Date Type Department Care Team Description 09/06/2021 10:00 AM [facility] Office Visit [facility] [address] [place] [address] Rachell Quesada DMD 08/24/2021 9:00 AM [facility] Office Visit [facility] [address], [facility] [address] [place] [address] Rachell Quesada, DMD Plan of Treatment Not on file Procedures Procedure Name Priority Date/Time Associated Diagnosis Comments CBCT - PROBLEM FOCUSED Routine 10:00 AM [facility] RE-EVALUATION POST-OPERATIVE OFFICE VISIT Routine 09/06/2021 10:00 AM [facility] 25 CERECFIRED CROWN ANT Routine 08/25/19 9:00 AM [facility] 25 CORE BUILDUP, INCLUDING ANY PINS WHEN REQUIRED Routine 08/24/2021 9:00 AM [facility] 25 ENDODONTIC THERAPY, ANTERIOR TOOTH (EXCLUDING FINAL PENTECOSTAL) Routine 08/24/2021 9:00 AM [facility] PANORAMIC RADIOGRAPHIC IMAGE Routine 08/24/2021 9:00 AM [facility] ADDITIONAL X-RAY Routine 08/24/2021 9:00 AM [facility] BITEWING - SINGLE RADIOGRAPHIC IMAGE Routine 08/24/2021 9:00 AM [facility] SINGLE X-RAY Routine 08/24/2021 9:00 AM [facility] LIMITED ORAL EVALUATION - PROBLEM FOCUSED Routine 08/24/2021 9:00 AM [facility] Visit Diagnoses Not on file Insurance [employer] HMO
== END 2024-10-31 08:35 | disposition home or self-care (01) ==
LOC: HO.HSMS 07:34
PROVIDERS: Visit Provider Nurse Practitioner Family
DX: G44.009 Cluster headache syndrome, unspecified, not intractable (principal); R51.9 Headache, unspecified; G43.711 Chronic migraine without aura, intractable, with status migrainosus
CPT/HCPCS: 99214

== ENCOUNTER 2024-11-18 14:48 | Outpatient (AMB) | payer OTHER, SELFPAY ==
--- OUTSIDE RECORDS SUMMARY | 2016-05-31 04:00 | XMS_ITS | Continuity of Care Document ---
Author Organization [facility] Address [address] [address] Phone Care Team Providers Care Cancer Registrar Name Role Phone Rosendo OD, Cl Unavailable Unavailable Advance Directives Directive Yes / No Effective Date File Name No Information Encounters Encounter Description Practice Location Reason(s) For Visit Diagnoses Date Provider [facility], [address] [place] [address], [id number], [place] tel:[phone] [facility] [address] No Information 2016 Rosendo [place]wood. [address] [place] [address], [id number], [place]. tel:[phone] Family History Family Member Type Diagnosis Age At Onset No Information Payers Payer name Insurance type Covered democrat ID Authoriza tion(s) No Information Social History Type Description Quantity Date Captured Comments Sex Female Smoking Status No Information Chief Complaint And Reason For Visit No Information History Of Present Illness Encounter Date Complaint History Of Prese nt Illness No Information Instructions Date Instruction Additional Infor mation No Information Assessments Type Assessment Date No Information
--- NOTE | 2024-11-18 15:12 | A.OFFVIS_ITS ---
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: No Accompanied by: Self / Same As Patient Allergies amoxicillin Allergy (Severe, Verified 11/18/24 15:16) Rash paroxetine (From Paxil) Allergy (Severe, Verified 11/18/24 15:16) bleeding internally kiwi Allergy (Intermediate, Verified 11/18/24 15:16) burn latex Allergy (Intermediate, Verified 11/18/24 15:16) Burn Penicillins Allergy (Intermediate, Verified 11/18/24 15:16) Rash prochlorperazine (From Compazine) Allergy (Intermediate, Verified 11/18/24 15:16) Muscle Pain banana Adverse Reaction (Severe, Verified 11/18/24 15:16) mouth burn B12 Adverse Reaction (Severe, Uncoded 07/29/24 14:37) jaundice Medication List - Last Reconciled 11/18/24 by Jameson Harmon NP atogepant (Qulipta) 60 mg PO DAILY 30 days dextroamphetamine-amphetamine 20 mg (Adderall) 20 mg PO DAILY dextroamphetamine-amphetamine 30 mg ER (Adderall XR) 30 mg PO DAILY ondansetron HCl 4 mg PO Q6H Oxygen Home Use Start home O2 at 15-25 L/min via non-rebreather facemask x's 15- 20 minutes at onset of cluster headache attack, MR as needed (max 4 hrs per day). Patient will require both M tanks and E tanks. sumatriptan succinate 100 mg PO DAILY PRN HPI Comments Details: This is a 39-year-old female patient coming in for a follow-up visit. Patient was working up with PCP for chest discomfort with stress test which was abnormal and patient underwent a myocardial perfusion study that showed questionable LAD territory ischemia and was referred to Cardiology for further evaluation. Patient subsequently underwent a coronary CTA. Today, patient reports ongoing symptoms of palpitations and heart racing with exertion. Patient has been on propranolol in the past for her migraine which did not work. Patient states that due to her ongoing uncontrolled migraine and cardiac symptoms, patient has not been as active and therefore feels deconditioned. Patient reports that she was recently started on Qulipta for her migraine and is hoping to overall improve her symptoms. [facility] Medical History Partially reversible myocardial perfusion defect Abnormal stress echocardiogram Migraine Surgical History History of dental surgery Family History Mother Colon cancer metastasized to liver Paternal Grandmother Ovarian cancer Father Prostate cancer Social History Housing: House Alcohol intake: current Alcohol intake frequency: holidays/special occasions only Patient Tobacco Use Status: Never used Tobacco e-Cigarette/Vaping Use: Former Use Second Hand Smoke Exposure: No service: No Current occupational status: unemployed Cognitive needs: No Hearing needs: No Vision needs: No Female Reproductive History Menstrual Age of Menarche: 12 Review of Systems Const Denies daytime sleepiness, Denies difficulty sleeping, Denies snoring, Denies stops breathing during sleep and Denies weakness Card Denies chest pain, Denies rapid heart rate, Denies irregular heart rhythm, Denies claudication, Denies leg edema, Denies lightheadedness, Denies palpitations, Denies dyspnea, Reports dyspnea on exertion, Denies orthopnea, Denies paroxysmal nocturnal dyspnea and Denies slow heart rate Resp Denies cough, Denies dyspnea, Reports dyspnea on exertion and Denies snoring GI Reports no additional complaints, Denies hematochezia, Denies change in stool character and Denies dyspepsia Musc Denies abnormal gait, Denies muscle weakness and Denies numbness Neuro Denies abnormal gait, Denies numbness and Denies weakness Endo Denies palpitations Physical Exam Vital Signs: Last Vital Signs Pulse 111 H 11/18/24 15:13 BP 126/60 11/18/24 15:13 BMI result Body Mass Index 24.0 Const General: cooperative, healthy appearing, comfortable and no acute distress Orientation/consciousness: patient oriented x3 HEENT Head: Yes normal to inspection Neck Neck: Yes normal visual inspection, Yes trachea midline and Yes supple Chest Chest palpation & inspection: normal inspection of the chest Resp Effort & Inspection: normal respiratory effort Auscultation: clear to auscultation bilaterally, no crackles, no rales, no rhonchi and no wheezes Cardio Jugular venous distension: no JVD Palpation: normal PMI Rate: tachycardic Rhythm: regular rhythm Heart sounds: S1 normal heart sound present, S2 normal heart sound present, no click, no gallops, no murmurs and no rubs Peripheral pulses: Peripheral pulses 2+ throughout GI Inspection: Yes normal to inspection Palpation (GI): Soft to palpation Auscultation: normal bowel sounds Skin General skin exam: no rashes or lesions noted Neuro General: patient oriented x3 Extrem General: Yes normal to inspection, No no pedal edema and No calf tenderness Psych Appearance: grossly normal Mental Status: mental status grossly normal Speech and movement: Normal speech and movement present Office Procedures EKG Details: EKG today showed sinus tachycardia, rate 111 beats per minute, biatrial enlargement, nonspecific T-wave abnormality, normal NM, [place]. [id number], Complete Assessment & Plan Assessment & Plan (1) Abnormal stress test: Code(s): R94.39 - Abnormal result of other cardiovascular function study Category: Medical (2) Chest pain: Code(s): R07.9 - Chest pain, unspecified Category: Medical (3) Sinus tachycardia: Code(s): R00.0 - Tachycardia, unspecified Category: Medical Plan 03/07/2024-patient underwent a treadmill stress test with reports of chest discomfort, shortness of breath, and fatigue without any EKG changes. Patient then underwent a myocardial perfusion study with Lexiscan that showed ischemia in the LAD territory. 03/17/2024-echo study showed a normal LV systolic function with the ejection fraction at 60% with no valvular pathology or wall motion abnormality. 11/04/2024-patient underwent coronary CTA that showed no significant coronary artery disease. It showed a upper normal size of the mid ascending aorta at 3.6 cm. Given above findings, no indication for further testing at this point. Discussed possibly doing a tilt-table study for evaluation of elevated heart rates and other symptoms associated with this to assess for dysautonomia. Patient would 1st like to try the Qulipta to see if this helps with all her symptoms. Patient is on Adderall which could also be elevating her heart rate however, patient does not want medical management at this point. Patient states that patient might be deconditioned from not being able to be as active given her ongoing issues. However, advised regular exercise to which patient is agreeable. Advised adequate hydration and avoidance of caffeinated beverages. Emphasized on stress mitigation strategies. Advised heart healthy diet. At this point, patient will meet with us on an as- needed basis. Patient will call the office with any concerns or change in symptoms. This note was generated using voice recognition software. While every effort has been made to ensure accuracy and proper abseiling instructor, there may be occasional errors that could affect the content or meaning of the described symptoms. Orders: Orders AMB EKG-In Office Today R00.0 - Tachycardia, unspecified Coding Level of Care Code Est Pt Level 4 (55657) Complex EM visit Add On G2211 Diagnoses Abnormal stress test R94.39 Chest pain R07.9 Sinus tachycardia R00.0 CPT Codes EKG - CPT: 04506-[id number], Complete ([id number]) Time Spent (min) 31 Comment Time spent in reviewing the chart, test results, assessment, counseling and documentation.
[2024-11-18 15:13] VITALS: BP 126/60; PULSE 111; BMI 24.0
--- OUTSIDE RECORDS SUMMARY | 2024-11-18 18:32 | XMS_ITS | Clinical Summary ---
Author Organization [facility] Health Address [address] [place] [address] Care Team Providers Care Meeting Planner Name Role Phone Unavailable Primary Care Provider [...]
--- OUTSIDE RECORDS SUMMARY | 2024-11-18 18:32 | XMS_ITS | Clinical Summary ---
Author Organization [facility] Address [address] [place] [address] Phone Care Team Providers Care Wood Miller Name Role Phone Unavailable Primary Care Provider [...] Mirtazapine 15 mg; Adderall XR 30 mg prison (current) use of opiate analgesic 01/04 Anxiety [...] series) 2012 COVID-19 Vaccine (2023-2 5 season) 2024 INFLUENZA VACCINE (#1) 2024 Zoster Vaccine (1 [...]
--- OUTSIDE RECORDS SUMMARY | 2024-11-18 18:32 | XMS_ITS | Referral Summary ---
Author Organization [facility] Address [address] [place] [address] Phone Care Team Providers Care Stretcher Operator Name Role Phone Unavailable Primary Care [...] Mirtazapine 15 mg; Adderall XR 30 mg retirement (current) use of opiate analgesic 01/04 Anxiety [...]
--- OUTSIDE RECORDS SUMMARY | 2024-11-18 18:32 | XMS_ITS | Encounter Summary ---
Author Organization [facility] Health Address [address] [place] [address] Care Team Providers Care Certified Ophthalmic Technologist Name Role Phone Unavailable Primary Care Provider Unavailabl e Prior Encounters Date Type Department Care Team Description 09/06/2021 10:00 AM [facility] Office Visit [facility] [address] [place] [address] Rachell Quesada DMD 08/24/2021 9:00 AM [facility] Office Visit [facility] [address], [facility] [address] [place] [address] Rachell Quesada, DMD Plan of Treatment Not on file Procedures Procedure Name Priority Date/Time Associated Diagnosis Comments CBCT - PROBLEM FOCUSED Routine 10:00 AM [facility] RE-EVALUATION POST-OPERATIVE OFFICE VISIT Routine 09/06/2021 10:00 AM [facility] 25 CERECFIRED CROWN ANT Routine 08/25/19 9:00 AM [facility] 25 CORE BUILDUP, INCLUDING ANY PINS WHEN REQUIRED Routine 08/24/2021 9:00 AM [facility] 25 ENDODONTIC THERAPY, ANTERIOR TOOTH (EXCLUDING FINAL LATTER DAY) Routine 08/24/2021 9:00 AM [facility] PANORAMIC RADIOGRAPHIC IMAGE Routine 08/24/2021 9:00 AM [facility] ADDITIONAL X-RAY Routine 08/24/2021 9:00 AM [facility] BITEWING - SINGLE RADIOGRAPHIC IMAGE Routine 08/24/2021 9:00 AM [facility] SINGLE X-RAY Routine 08/24/2021 9:00 AM [facility] LIMITED ORAL EVALUATION - PROBLEM FOCUSED Routine 08/24/2021 9:00 AM [facility] Visit Diagnoses Not on file Insurance [employer] HMO
== END 2024-11-18 15:57 | disposition home or self-care (01) ==
LOC: HO.HCS 14:49
DX: R94.39 Abnormal result of other cardiovascular function study (principal); R07.9 Chest pain, unspecified; R00.0 Tachycardia, unspecified
CPT/HCPCS: 93010; 99214

== ENCOUNTER → 2024-11-18 14:48 | Outpatient (BNVA) | payer OTHER, SELFPAY | DX: R00.2 Palpitations (principal); R94.39 Abnormal result of other cardiovascular function study; R07.9 Chest pain, unspecified; R00.0 Tachycardia, unspecified | CPT/HCPCS: 93005; 99212 ==

== ENCOUNTER 2025-02-13 14:26 | Outpatient (AMB) | payer OTHER, SELFPAY ==
--- NOTE | 2025-02-13 14:29 | A.OFFPC_ITS ---
Vital Signs 02/13/25 14:31 Height 6 ft Weight 164 lb 8 oz BMI 22.3 BP 120/80 Blood Pressure Location Lt brachial Position Sitting Pulse 100 Pulse Source Pulse Oximeter Temp 97.1 F Temp Source Temporal Artery Scan Pulse Oximetry (%) 99 Oxygen Delivery Method Room Air Intake Visit Reasons: 3 mo follow up Intake Note: Patient is here to follow up on ADHD, Chronic pain, Migraine. Blanker Press Operator Required: No Gas Charger: Not Required per policy Accompanied by: Self / Same As Patient Allergies amoxicillin Allergy (Severe, Verified 02/13/25 14:46) Rash paroxetine (From Paxil) Allergy (Severe, Verified 02/13/25 14:46) bleeding internally kiwi Allergy (Intermediate, Verified 02/13/25 14:46) burn latex Allergy (Intermediate, Verified 02/13/25 14:46) Burn Penicillins Allergy (Intermediate, Verified 02/13/25 14:46) Rash prochlorperazine (From Compazine) Allergy (Intermediate, Verified 02/13/25 14:46) Muscle Pain banana Adverse Reaction (Severe, Verified 02/13/25 14:46) mouth burn B12 Adverse Reaction (Severe, Uncoded 02/13/25 14:46) jaundice Medication List - Last Reconciled 02/13/25 by Patricia Singer PA-C atogepant (Qulipta) 60 mg PO DAILY 30 days dextroamphetamine-amphetamine 20 mg (Adderall) 20 mg PO DAILY dextroamphetamine-amphetamine 30 mg ER (Adderall XR) 30 mg PO DAILY doxycycline hyclate 100 mg PO BID ibuprofen 800 mg PO TID ondansetron HCl 4 mg PO Q6H Oxygen Home Use Start home O2 at 15-25 L/min via non-rebreather facemask x's 15- 20 minutes at onset of cluster headache attack, MR as needed (max 4 hrs per day). Patient will require both M tanks and E tanks. sumatriptan succinate 100 mg PO DAILY PRN Tobacco use date assessed: 02/13/25 Dental Screening Dental Screen Date: 10/29/24 HPI 3 mo follow up HPI Details 39-year-old female with past medical his tory of ADHD, migraine, Gilbert syndrome, depression last seen 10/2024 coming in for follow up. In review of the notes, patient was seen by cardiology 11/2024 no further testing warranted consideration was made for tilt table test. Seen by neuro 10/2024 started on Quilipta. Presenting for management of multiple medical issues. The patient recently underwent extensive dental work on four areas of her jaw, which required being put under anesthesia and included bone grafts. She subsequently developed an infection and is currently being treated with high-dose doxycycline, reporting that her mouth feels like it is full of hot coals. She will need to return to the oral surgeon for further work after the course of antibiotics is completed. She has experienced significant weight loss of 26 pounds over the last six months, with her BMI dropping from 24 to 22. 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 For the past two years, she has not eaten solid food, and currently consumes a high-protein meal replacement shake in the morning and is encouraged to eat dinner, but experiences nausea after a few bites. The patient reports symptoms of depression, feeling like a ghost and having no desire to do things, including eating. She reports shutting off her emotions as a coping mechanism for significant life stressors, which include a recent divorce, her father's cancer diagnosis, and caring for her grandmother, all while lacking a personal support system. A previous trial of an SSRI resulted in artery and capillary leakage and a blood infection after two months, making her hesitant to try another medication. [facility] Medical History Partially reversible myocardial perfusion defect Abnormal stress echocardiogram Migraine Surgical History History of dental surgery Family History Mother Colon cancer metastasized to liver Paternal Grandmother Ovarian cancer Father Prostate cancer Social History Housing: House Alcohol intake: current Alcohol intake frequency: holidays/special occasions only Patient Tobacco Use Status: Never used Tobacco e-Cigarette/Vaping Use: Former Use Second Hand Smoke Exposure: No service: No Current occupational status: unemployed Cognitive needs: No Hearing needs: No Vision needs: No Female Reproductive History Menstrual Age of Menarche: 12 Questionnaire Thrive Questionnaire Date Thrive assessed: 04/28/24 I am a: Patient What is your living situation today?: I have a steady place to live Within the past 12 months, did the food you bought not last and you didn't have the money to get more?: I choose not to answer this question Within the past 12 months, did you worry whether your food would run out before you got money to buy more?: Never true Do you have trouble paying for medicines?: I choose not to answer this question Do you have trouble getting transportation to medical appointments?: No Do you have trouble paying your heating and electricity bill?: No Do you have trouble taking care of your child, family member or friend?: No Do you have trouble with day-to-day activities such as bathing, preparing meals, shopping, managing finances, etc.?: No Are you currently unemployed and looking for a job?: I choose not to answer this question Are you interested in more education?: I choose not to answer this question Please select the resources that you would like help with: None Currently or been in a relationship where the following occur: No concerns reported THRIVE Score: 0 ALLISON-7 AMB Questionnaire ALLISON-7 Date ALLISON - 7 assessed: 10/29/24 Source: Developed by Drs. Frandy Portillo, Rachel Sr, Mike Vu and colleagues, with an educational chris from [employer]. Review of Systems Const Reports headache(s) Eyes Reports no additional complaints ENT Reports headache(s) Card Denies chest pain, Reports chest pain with activity, Denies syncope, Denies edema, Denies lightheadedness and Denies dyspnea Resp Denies dyspnea GI Denies abdominal pain, Denies nausea and Denies vomiting Reports no additional complaints Musc Reports no additional complaints and Denies abnormal gait Skin/Breast Reports system reviewed and no additional complaints, except as documented Neuro Denies abnormal gait, Denies syncope and Reports headache(s) Psych Reports no additional complaints Physical exam (Primary Care) Vital Signs: Last Vital Signs Temp 97.1 F 02/13/25 14:31 Pulse 100 02/13/25 14:31 BP 120/80 02/13/25 14:31 Pulse Ox 99 02/13/25 14:31 Oxygen Delivery Method Room Air 12/12/25 14:31 BMI result Body Mass Index 22.3 Tobacco/Smoking Status: Tobacco use Status Tobacco use date assessed 02/13/25 02/13/25 14:35 Patient Tobacco Use Status Never used Tobacco 02/13/25 14:35 e-Cigarette/Vaping Use Former Use 02/13/25 14:35 Thrive Assessment: Date of Thrive Assessment Date Thrive assessed 04/28/24 02/13/25 14:35 Currently or been in a relationship where the following occur: No concerns reported Const General: cooperative, healthy appearing, comfortable and no acute distress Orientation/consciousness: patient oriented x3 HENMT Head: Yes normocephalic Ears: hearing grossly normal bilaterally General nose exam: Normal external nose present Eyes General: appearance normal, both eyes and all related structures Conjunctivae: conjunctivae normal Neck Neck: Yes full ROM and Yes no lymphadenopathy Resp Effort & Inspection: normal respiratory effort Auscultation: clear to auscultation bilaterally, no crackles, no rales, no rhonchi and no wheezes Cardio Rate: regular rate Rhythm: regular rhythm Skin General skin exam: no rashes or lesions noted Neuro General: patient oriented x3 Gait exam (Neuro): Normal gait present Extrem General: Yes normal to inspection, Yes full ROM and No edema Psych Affect: normal affect Attitude: cooperative Insight: Good insight present (Psych) Judgement: Good judgement present (Psych) Coding Level of Care Code Est Pt Level 3 (45021) Diagnoses Depression F32.A Jaw cyst M27.40 Migraine G43.909 Abnormal stress test R94.39 Weight loss R63.4 Assessment & Plan Assessment & Plan (1) Depression: Code(s): F32.A - Depression, unspecified Category: Medical Plan: Referral was placed to counseling at this time and consideration for medication we made by specialists. (2) Jaw cyst: Code(s): M27.40 - Unspecified cyst of jaw Category: Medical Plan: Patient is currently on high-dose doxycycline for jaw infection and she will continue to follow with her oral surgeon at this time. (3) Migraine: Code(s): G43.909 - Migraine, unspecified, not intractable, without status migrainosus Category: Medical Plan: The patient will continue her current regimen of Qulipta and sumatriptan for migraine management, as it has shown some efficacy in reducing headache recurrence. She has an upcoming follow-up appointment with her neurologist. 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 Management consists of time for the heart to recover, which is anticipated given her age and overall health. (5) Weight loss: Code(s): R63.4 - Abnormal weight loss Category: Medical Plan: The patient has experienced a 26-pound weight loss in six months, with her BMI now at 22. She has been counseled to increase her nutritional intake by eating small amounts of food about five times a day to combat her lack of appetite and prevent her BMI from dropping further. A referral will be placed for a media planner to evaluate her long-standing digestive issues, including the congenital absence of an esophageal sphincter and lack of hunger. Plan This note was constructed using voice recognition software. While every effort has been made to ensure accuracy and mathematics academic chair, still areas may have been included sometimes these areas may affect the content or meeting of the given symptoms. Total time spent caring for the patient today was 20 minutes. This includes time spent before the visit reviewing the chart, time spent during the visit, and time spent after the visit and documentation. Patient was informed and verbally consented to the use of an ambient scribe for clinic note documentation during this visit. Orders: Referrals Gastroenterology Referral K59.00 - Constipation, unspecified, Z12.11 - Encounter for screening for malignant neoplasm of colon Counseling Referral F32.A - Depression, unspecified, F90.9 - Attention-deficit hyperactivity disorder, unspecified type Chiropractic Referral G43.709 - Chronic migraine without aura, not intractable, without status migrainosus, M47.812 - Spondylosis without myelopathy or radiculopathy, cervical region
[2025-02-13 14:31] VITALS: BP 120/80; PULSE 100; TEMP 36.2; O2SAT 99; BMI 22.3
--- OUTSIDE RECORDS SUMMARY | 2025-02-13 19:39 | XMS_ITS | Encounter Summary ---
Author Organization [facility] Health Address [address] [place] [address] Care Team Providers Care Email Manager Name Role Phone Unavailable Primary Care Provider Unavailabl e Prior Encounters Date Type Department Care Team Description 09/06/2021 10:00 AM [facility] Office Visit [place] [facility] [address] [place] [address] Rachell Quesada DMD 08/24/2021 9:00 AM [facility] Office Visit [place] [facility] [address], [facility] [address] [place] [address] Rachell Quesada, DMD Plan of Treatment Not on file Procedures Procedure Name Priority Date/Time Associated Diagnosis Comments CBCT - PROBLEM FOCUSED Routine 10:00 AM [facility] RE-EVALUATION POST-OPERATIVE OFFICE VISIT Routine 09/06/2021 10:00 AM [facility] 25 CERECFIRED CROWN ANT Routine 08/25/19 9:00 AM [facility] 25 CORE BUILDUP, INCLUDING ANY PINS WHEN REQUIRED Routine 08/24/2021 9:00 AM [facility] 25 ENDODONTIC THERAPY, ANTERIOR TOOTH (EXCLUDING FINAL BAHAI) Routine 08/24/2021 9:00 AM [facility] PANORAMIC RADIOGRAPHIC IMAGE Routine 08/24/2021 9:00 AM [facility] ADDITIONAL X-RAY Routine 08/24/2021 9:00 AM [facility] BITEWING - SINGLE RADIOGRAPHIC IMAGE Routine 08/24/2021 9:00 AM [facility] SINGLE X-RAY Routine 08/24/2021 9:00 AM [facility] LIMITED ORAL EVALUATION - PROBLEM FOCUSED Routine 08/24/2021 9:00 AM [facility] Visit Diagnoses Not on file Insurance [employer] HMO
--- OUTSIDE RECORDS SUMMARY | 2025-02-13 19:39 | XMS_ITS | Clinical Summary ---
Author Organization [facility] Health Address [address] [place] [address] Care Team Providers Care Apron Operator Name Role Phone Unavailable Primary Care [...]
== END 2025-02-13 15:15 | disposition home or self-care (01) ==
LOC: HO.HMCH 14:27
DX: F32.A Depression, unspecified (principal); M27.40 Unspecified cyst of jaw; G43.909 Migraine, unspecified, not intractable, without status migrainosus; R94.39 Abnormal result of other cardiovascular function study; R63.4 Abnormal weight loss

== ENCOUNTER → 2025-02-13 14:26 | Outpatient (BNVA) | payer OTHER, SELFPAY | DX: G43.909 Migraine, unspecified, not intractable, without status migrainosus (principal); F32.A Depression, unspecified; M27.40 Unspecified cyst of jaw; R94.39 Abnormal result of other cardiovascular function study; R63.4 Abnormal weight loss | CPT/HCPCS: 99212 ==